=== PATIENT | female | born 1960 ===

== ENCOUNTER 2017-06-16 10:24 | Emergency (ER) | payer OTHER ==
[2017-06-16 10:25] VITALS: BMI 22.8
[2017-06-16] MEDS ORDERED: Sodium Chloride 0.9% 1,000 ML IV ONE (12:09)
[2017-06-16] MEDS ORDERED: Iohexol 240 (50 ml) PO STA (12:09)
[2017-06-16 12:42] LABS: BASO % 0.3 % (0.0-2.0); EOS % 0.2 % (0.0-4.0); HEMOGLOBIN 14.8 g/dL (11.0-16.0); LYMPH # 1.6 K/uL (1.0-4.3); LYMPH % 11.6 % (20.0-40.0); MEAN CELL VOLUME 85.5 fL (81.0-99.0); MEAN CORPUSCULAR HEMOGLOBIN 29.5 pg (27.0-31.0); MEAN CORPUSCULAR HGB CONC 34.5 g/dL (33.0-37.0); MONO # 0.8 K/uL (0.0-0.8); MONO % 5.3 % (0.0-10.0); NEUT # 11.7 K/uL (1.8-7.0); NEUT % 82.6 % (50.0-75.0); RBC 5.01 Mil/uL (3.80-5.20); RED CELL DISTRIBUTION WIDTH 13.9 % (11.5-14.5); WHITE BLOOD COUNT 14.2 K/uL (4.8-10.8)
[2017-06-16] MEDS ORDERED: Iohexol 240 (50 ml) ONE (12:45)
[2017-06-16] MEDS ORDERED: Sodium Chloride 0.9% 1,000 ML ONE (12:46)
[2017-06-16 13:02] LABS: ALB/GLOB RATIO 1.2 (1.0-2.1); ALBUMIN 4.2 g/dL (3.5-5.0); ALT/SGPT 18 U/L (9-52); AST/SGOT 24 U/L (14-36); BLOOD UREA NITROGEN 12 mg/dL (7-17); CALCIUM 9.2 mg/dl (8.6-10.4); GFR AFRICAN-AMERICAN > 60; GFR NON-AFRICAN AMERICAN > 60; LIPASE 57 U/L (23-300)
[2017-06-16 13:03] LABS: HCG,QUALITATIVE URINE NEGATIVE (NEGATIVE)
[2017-06-16 13:13] LABS: SQUAMOUS EPITHIAL 3 /hpf (0-5); URINE BILIRUBIN NEGATIVE (NEGATIVE); URINE BLOOD 1+ (NEGATIVE); URINE CLARITY Hazy (Clear); URINE COLOR Yellow (YELLOW); URINE GLUCOSE (UA) NORMAL (Normal); URINE LEUKOCYTE ESTERASE NEG Leu/uL (Negative); URINE PROTEIN NEGATIVE (NEGATIVE); URINE UROBILINOGEN NORMAL mg/dL (0.2-1.0)
[2017-06-16] MEDS ORDERED: Iodixanol 320 MG/ML 100 ML BOTTLE IV ONE (14:55)
--- NOTE | 2017-06-16 16:30 | CT ---
PROCEDURE: CT Abdomen and Pelvis with contrast HISTORY: abd pain COMPARISON: None. TECHNIQUE: Axial and reformatted coronal and sagittal CT images of the abdomen and pelvis were obtained after IV and oral contrast administration. Contrast dose: 100 mL Visipaque 320. Radiation dose: Total exam DLP = 304.30 mGy-cm. This CT exam was performed using one or more of the following dose reduction techniques: Automated exposure control, adjustment of the mA and/or kV according to patient size, and/or use of iterative reconstruction technique. FINDINGS: LOWER THORAX: Unremarkable. LIVER: Unremarkable. No gross lesion or ductal dilatation. GALLBLADDER AND BILE DUCTS: Unremarkable. PANCREAS: Unremarkable. No gross lesion or ductal dilatation. SPLEEN: Unremarkable. ADRENALS: Unremarkable. No mass. KIDNEYS AND URETERS: The left kidney is very small in size. There is compensatory enlargement of the right kidney. VASCULATURE: Unremarkable. No aortic aneurysm. BOWEL: There is a diffuse descending colon wall thickening surrounding with fat stranding consistent with colitis. No evidence of bowel obstruction APPENDIX: Normal appendix. PERITONEUM: Unremarkable. No free fluid. No free air. LYMPH NODES: Unremarkable. No enlarged lymph nodes. BLADDER: Unremarkable. REPRODUCTIVE: Unremarkable. BONES: No acute fracture. OTHER FINDINGS: None. IMPRESSION: Diffuse descending colon wall thickening surrounding with inflammatory changes consistent with left colitis. The differential consideration includes infection inflammatory or ischemic colitis. Otherwise no evidence of acute pathology in the abdomen and pelvis. Small size left kidney and compensatory enlargement of the right kidney.
[2017-06-16] MEDS ORDERED: cefTRIAXone IV 1 gm in Dextros 50 ML IVPB ONE ×2 (16:53→17:16)
[2017-06-16] MEDS ORDERED: Ciprofloxacin 400mg/200ml D5W 400 MG/200 ML BAG IVPB STA (16:53)
[2017-06-16] MEDS ORDERED: metroNIDAZOLE IV 500 mg/100 ml 500 MG/100 ML BAG IVPB ONE (16:53)
--- NOTE | 2017-06-16 17:14 | C.PDOC ---
History Of Present Illness 56 y/o female presents to the ER complaining of diffuse abdominal pain ( L>R) and blood in stool which has been present since yesterday. Patient states that she also has dizziness. Otherwise, patient denies having CP, SOB, and constipation. Time Seen by Provider: 06/16/17 11:48 Chief Complaint (Nursing): Abdominal Pain History Per: Patient History/Exam Limitations: no limitations Onset/Duration Of Symptoms: Days Current Symptoms Are (Timing): Still Present Severity: Moderate Location Of Pain/Discomfort: Diffuse Associated Symptoms: denies: Fever, Chills, Nausea, Vomiting, Diarrhea Past Medical History Reviewed: Historical Data, Nursing Documentation, Vital Signs Vital Signs: Last Vital Signs Temp 98 F 06/16/17 10:56 Pulse 95 H 06/16/17 10:56 Resp 18 06/16/17 10:56 BP 159/96 H 06/16/17 10:56 Pulse Ox 100 06/16/17 17:32 - Medical History PMH: Anxiety, Back Problems, HTN Denies: HIV, Chronic Kidney Disease Other Surgeries: Hx of surgeries - [facility] Procedures FLUOROSCOPY OF LEFT HEART USING LOW OSMOLAR CONTRAST (04/19/16) FLUOROSCOPY OF MULT COR ART USING L OSM CONTRAST (04/19/16) MEASURE CARDIAC SAMPL & PRESSURE, BILATERAL, PERC (04/19/16) Family History: States: No Known Family Hx - Social History Hx Tobacco Use: Yes Hx Alcohol Use: No Hx Substance Use: No - Immunization History Hx Tetanus Toxoid Vaccination: Yes Hx Influenza Vaccination: Yes Hx Pneumococcal Vaccination: Yes Review Of Systems Except As Marked, All Systems Reviewed And Found Negative. Constitutional: Negative for: Fever, Chills Gastrointestinal: Positive for: Abdominal Pain, Melena. Negative for: Nausea, Vomiting, Diarrhea Physical Exam - Physical Exam Appears: Non-toxic, No Acute Distress Skin: Normal Color, Warm, Dry Head: Atraumatic, Normacephalic Eye(s): bilateral: Normal Inspection Nose: Normal Oral Mucosa: Moist Neck: Supple Chest: Symmetrical Cardiovascular: Rhythm Regular Respiratory: Normal Breath Sounds, No Rales, No Rhonchi, No Wheezing Gastrointestinal/Abdominal: Normal Exam, Soft, No Tenderness Neurological/Psych: Oriented x3, Normal Speech ED Course And Treatment - Laboratory Results Result Diagrams: 06/16/17 12:36 06/16/17 12:36 O2 Sat by Pulse Oximetry: 100 (RA) Pulse Ox Interpretation: Normal - CT Scan/US CT-Abd & Pelv. Other Rad Studies (CT/US): Read By Radiologist, Radiology Report Reviewed CT/US Interpretation: PROCEDURE: CT Abdomen and Pelvis with contrast. HISTORY : abd pain. COMPARISON: None. TECHNIQUE: Axial and reformatted coronal and sagittal CT images of the abdomen and pelvis were obtained after IV and oral contrast administration. Contrast dose: 100 mL Visipaque 320. Radiation dose: Total exam DLP = 304.30 mGy-cm. This CT exam was performed using one or more of the following dose reduction techniques: Automated exposure control, adjustment of the mA and/or kV according to patient size, and/or use of iterative reconstruction technique. FINDINGS: LOWER THORAX: Unremarkable. LIVER: Unremarkable. No gross lesion or ductal dilatation. GALLBLADDER AND BILE DUCTS: Unremarkable. PANCREAS: Unremarkable. No gross lesion or ductal dilatation. SPLEEN: Unremarkable. ADRENALS: Unremarkable. No mass. KIDNEYS AND URETERS: The left kidney is very small in size. There is compensatory enlargement of the right kidney. VASCULATURE: Unremarkable. No aortic aneurysm. BOWEL: There is a diffuse descending colon wall thickening surrounding with fat stranding consistent with colitis. No evidence of bowel obstruction. APPENDIX: Normal appendix. PERITONEUM: Unremarkable. No free fluid. No free air. LYMPH NODES: Unremarkable. No enlarged lymph nodes. BLADDER: Unremarkable. REPRODUCTIVE: Unremarkable. BONES: No acute fracture. OTHER FINDINGS: None. IMPRESSION: Diffuse descending colon wall thickening surrounding with inflammatory changes consistent with left colitis. The differential consideration includes infection inflammatory or ischemic colitis. Otherwise no evidence of acute pathology in the abdomen and pelvis. Small size left kidney and compensatory enlargement of the right kidney. Medical Decision Making Medical Decision Making: Plan: --Labs --UA --EKG --CT-Abd & Pelv. --Pepcid IV --Toradol IV --IV Fluids Disposition Counseled Patient/Family Regarding: Studies Performed, Diagnosis, Need For Followup, Rx Given - Disposition Referrals: Sunday Rboertson MD [Staff Provider] - Disposition: HOME/ ROUTINE Disposition Time: 18:06 Condition: STABLE Prescriptions: Ciprofloxacin [Cipro] 1 tab PO BID #14 tab Metronidazole [Flagyl] 1 tab PO BID #14 tab Forms: General Discharge Instructions, [facility] (Green[place]ic), Work Excuse - POA Present On Arrival: None - Clinical Impression Clinical Impression: Colitis - Scribe Statement The provider has reviewed the documentation as recorded by the Scribe Suzan Wong Provider Attestation: All medical record entries made by the Scribe were at my direction and personally dictated by me. I have reviewed the chart and agree that the record accurately reflects my personal performance of the history, physical exam, medical decision making, and the department course for this patient. I have also personally directed, reviewed, and agree with the discharge instructions and disposition.
[2017-06-16] MEDS ORDERED: Ciprofloxacin 400mg/200ml D5W 400 MG/200 ML BAG IVPB ONE (17:17)
[2017-06-16] MEDS ORDERED: metroNIDAZOLE IV 500 mg/100 ml 500 MG/100 ML BAG ONE (17:20)
[2017-06-16 19:20] VITALS: BP 149/82; PULSE 82; RESP 16; TEMP 98.7; O2SAT 99
--- NOTE | 2017-06-18 12:25 | CARD ---
APPROVED REPORT EKG Measurement Heart [id number] <Conclusion> Normal sinus rhythm Possible Left atrial enlargement Borderline ECG
== END 2017-06-16 19:18 | disposition home or self-care (01) ==
LOC: C.ER 10:24
DX: K52.9 Noninfective gastroenteritis and colitis, unspecified (principal); I10 Essential (primary) hypertension; F17.210 Nicotine dependence, cigarettes, uncomplicated
CPT/HCPCS: 74177; 80053; 81001; 83690; 84703; 85025; 93005; 96361; 96365; 96367; 96375; 99284; J0696; J0744; J1885; J7040; Q9966; Q9967

== ENCOUNTER 2017-06-17 19:00 | Inpatient (IN) | payer OTHER ==
[2017-06-17 19:01] VITALS: BMI 22.8
[2017-06-17] MEDS ORDERED: Sodium Chloride 0.9% 1,000 ML IV ONE (21:03)
[2017-06-17] MEDS ORDERED: Sodium Chloride 0.9% 1,000 ML ONE (21:13)
[2017-06-17 21:15] LABS: BASO % 0.1 % (0.0-2.0); EOS % 0.3 % (0.0-4.0); HEMOGLOBIN 15.4 g/dL (11.0-16.0); LYMPH # 2.4 K/uL (1.0-4.3); MEAN CELL VOLUME 85.5 fL (81.0-99.0); MEAN CORPUSCULAR HGB CONC 33.9 g/dL (33.0-37.0); MEAN PLATELET VOLUME 9.7 fL (7.2-11.7); MONO # 1.1 K/uL (0.0-0.8); MONO % 7.1 % (0.0-10.0); NEUT # 12.2 K/uL (1.8-7.0); NEUT % 77.5 % (50.0-75.0); RBC 5.29 Mil/uL (3.80-5.20); RED CELL DISTRIBUTION WIDTH 13.7 % (11.5-14.5); WHITE BLOOD COUNT 15.7 K/uL (4.8-10.8)
[2017-06-17 21:25] LABS: SQUAMOUS EPITHIAL 3 /hpf (0-5); URINE BILIRUBIN NEGATIVE (NEGATIVE); URINE BLOOD NEGATIVE (NEGATIVE); URINE CLARITY Clear (Clear); URINE COLOR Yellow (YELLOW); URINE GLUCOSE (UA) NORMAL (Normal); URINE LEUKOCYTE ESTERASE 1+ Leu/uL (Negative); URINE PROTEIN 1+ mg/dL (NEGATIVE); URINE URIC ACID CRYSTALS OCC /hpf (<OCC); URINE UROBILINOGEN NORMAL mg/dL (0.2-1.0)
[2017-06-17 21:34] LABS: ALB/GLOB RATIO 1.2 (1.0-2.1); ALBUMIN 4.4 g/dL (3.5-5.0); ALT/SGPT 23 U/L (9-52); AST/SGOT 42 U/L (14-36); BLOOD UREA NITROGEN 14 mg/dL (7-17); CALCIUM 9.4 mg/dl (8.6-10.4); GFR AFRICAN-AMERICAN > 60; GFR NON-AFRICAN AMERICAN > 60
--- NOTE | 2017-06-17 21:52 | C.PDOC ---
History Of Present Illness 56yo female, presents to ED for evaluation of persistent bloody diarrhea. Patient was seen and evaluated by Dr. Cameron in this ER yesterday for bloody diarrhea and was diagnosed with colitis via a CT scan. Patient was discharged home on Cipro and Flagyl and states she took the medications but when she woke up this morning, she had continued abdominal pain, bloody diarrhea with PO intake and intense abdominal pain. Patient contacted Dr. Robertson (her PMD) who advised her to return to the ER. Currently, she reports a mild abdominal pain and states she is feeling better. Of note, patient did not take her blood pressure medication today. Time Seen by Provider: 06/17/17 20:51 Chief Complaint (Nursing): Abdominal Pain History Per: Patient History/Exam Limitations: no limitations Onset/Duration Of Symptoms: Days Current Symptoms Are (Timing): Still Present Location Of Pain/Discomfort: Diffuse Associated Symptoms: Diarrhea Past Medical History Reviewed: Historical Data, Nursing Documentation, Vital Signs Vital Signs: Last Vital Signs Temp 98.5 F 06/17/17 19:45 Pulse 110 H 06/17/17 19:45 Resp 16 06/17/17 19:45 BP 181/111 H 06/17/17 19:45 Pulse Ox 100 06/17/17 22:05 - Medical History PMH: Anxiety, Back Problems, HTN Denies: HIV, Chronic Kidney Disease Surgical History: No Surg Hx - [facility] Procedures FLUOROSCOPY OF LEFT HEART USING LOW OSMOLAR CONTRAST (04/19/16) FLUOROSCOPY OF MULT COR ART USING L OSM CONTRAST (04/19/16) MEASURE CARDIAC SAMPL & PRESSURE, BILATERAL, PERC (04/19/16) Family History: States: No Known Family Hx, Unknown Family Hx - Social History Hx Tobacco Use: Yes Hx Alcohol Use: No Hx Substance Use: No - Immunization History Hx Tetanus Toxoid Vaccination: Yes Hx Influenza Vaccination: Yes Hx Pneumococcal Vaccination: Yes Review Of Systems Except As Marked, All Systems Reviewed And Found Negative. Constitutional: Negative for: Fever, Chills Gastrointestinal: Positive for: Abdominal Pain, Diarrhea, Hematochezia Physical Exam - Physical Exam Appears: Non-toxic Skin: Warm Head: Atraumatic, Normacephalic Eye(s): bilateral: Normal Inspection, PERRL, EOMI Oral Mucosa: Dry Neck: Normal ROM, Supple Chest: Symmetrical Cardiovascular: Rhythm Regular Respiratory: Normal Breath Sounds, No Wheezing Gastrointestinal/Abdominal: Soft, Tenderness (mild left lower quadrant), No Mass , No Guarding, No Rebound Back: Normal Inspection Extremity: Normal ROM, No Deformity, No Swelling Neurological/Psych: Oriented x3 ED Course And Treatment - Laboratory Results Result Diagrams: 06/17/17 21:09 06/17/17 21:09 Lab Interpretation: Abnormal (WBC 15.7 increased from yesterday) O2 Sat by Pulse Oximetry: 100 (RA) Pulse Ox Interpretation: Normal - Physician Consult Information Physician Contacted: Sunday Robertson Outcome Of Conversation: Patient to be admitted for IV antibiotics and GI consult Medical Decision Making Medical Decision Making: Plan: -- Labs -- IV Fluids Time: [address] Robertson, and patient to be admitted due to colitis. GI consult placed with Dr. Isaacs Disposition - Disposition Disposition: HOSPITALIZED Disposition Time: 22:23 Condition: STABLE - POA Present On Arrival: None - Clinical Impression Clinical Impression: Colitis - Scribe Statement The provider has reviewed the documentation as recorded by the Scribe (Dianna Polanco) Provider Attestation: All medical record entries made by the Scribe were at my direction and personally dictated by me. I have reviewed the chart and agree that the record accurately reflects my personal performance of the history, physical exam, medical decision making, and the department course for this patient. I have also personally directed, reviewed, and agree with the discharge instructions and disposition.
[2017-06-17] MEDS ORDERED: Morphine 4 MG/ML VIAL ONE (23:13)
[2017-06-18] MEDS: Potassium Chl 40 mEq in D5-1/2 1,000 ML IV SCH ×3 (01:00→20:47)
[2017-06-18] MEDS: Clindamycin 300 MG in Sodium Chloride 0.9% 50 ML IVPB SCH ×4 (01:00→17:41)
[2017-06-18] MEDS: Ciprofloxacin 200mg/100ml D5W 100 ML IVPB SCH ×2 (01:30→12:53)
--- NOTE | 2017-06-18 09:52 | CP.PCM.CON ---
History of Present Illness - History of Present Illness History of Present Illness: 56 yo female h/o HTN, reports few days of diarrhea and abdom pain. Diarrhea- few times per day with BRBPR. Went to ER 2 days ago and discharged. Went back yesterday and admitted. Today she reports starting to have less pain, diarrrhea , and RB. Denies travel, antibiotics. PMH- Reports neg card cath 1 yr ago. Review of Systems - Constitutional Constitutional: Fatigue. absent: Chills, Weight Gain, Weight Loss - Cardiovascular Cardiovascular: absent: Chest Pain, Dyspnea - Respiratory Respiratory: absent: Hemoptysis, Wheezing - Gastrointestinal Gastrointestinal: Abdominal Pain, Diarrhea, Hematochezia, Loose Stools. absent : Dyspepsia, Dysphagia, Hematemesis, Melena, Odynophagia, Vomiting - Genitourinary Genitourinary: absent: Hematuria - Musculoskeletal Musculoskeletal: absent: Muscle Cramps, Tingling - Integumentary Integumentary: absent: Erythema, Jaundice - Neurological Neurological: absent: Convulsions Past Patient History - Infectious Disease Hx of Infectious Diseases: None - Past Medical History & Family History Past Medical History?: Yes - Past Social History Smoking Status: Light Smoker < 10 Cigarettes Daily - CARDIAC Hx Cardiac Disorders: No Hx Hypertension: Yes - PULMONARY Hx Respiratory Disorders: No - NEUROLOGICAL Hx Neurological Disorder: No - HEENT Hx HEENT Problems: No - RENAL Hx Chronic Kidney Disease: No - ENDOCRINE/METABOLIC Hx Endocrine Disorders: No - HEMATOLOGICAL/ONCOLOGICAL Hx Blood Disorders: No Hx Human Immunodeficiency Virus (HIV): No - INTEGUMENTARY Hx Dermatological Problems: No - MUSCULOSKELETAL/RHEUMATOLOGICAL Hx Musculoskeletal Disorders: Yes Hx Back Pain: Yes Hx Falls: No - GASTROINTESTINAL Hx Gastrointestinal Disorders: No - GENITOURINARY/GYNECOLOGICAL Hx Genitourinary Disorders: No - PSYCHIATRIC Hx Anxiety: Yes Hx Substance Use: No - SURGICAL HISTORY Hx Surgeries: Yes Other/Comment: 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 - ANESTHESIA Hx Anesthesia: Yes Hx Anesthesia Reactions: No Hx Malignant Hyperthermia: No Meds Allergies/Adverse Reactions: Allergies Allergy/AdvReac Type Severity Reaction Status Date / Time No Known Allergies Allergy Verified 06/17/17 19:52 - Medications Medications: Current Medications Amlodipine Besylate (Norvasc) 10 mg PO DAILY KADI Last Admin: 06/18/17 09:06 Dose: 10 mg Potassium Chloride/Dextrose/Sod Cl (Potassium Chl 40 Meq In D5-1/2ns) 1,000 mls @ 100 mls/hr IV .Q10H [facility] Last Admin: 06/18/17 01:00 Dose: 100 mls/hr Clindamycin Phosphate 300 mg/ (Sodium Chloride) 52 mls @ 100 mls/hr IVPB Q6H KADI PRN Reason: Protocol Last Admin: 06/18/17 06:54 Dose: 100 mls/hr Ciprofloxacin (Cipro 200mg/100ml D5w) 100 mls @ 67 mls/hr IVPB Q12H KADI PRN Reason: Protocol Last Admin: 06/18/17 01:30 Dose: 67 mls/hr Pantoprazole Sodium (Protonix Inj) 40 mg IVP Q12H [facility] Last Admin: 06/18/17 01:30 Dose: 40 mg Physical Exam - Constitutional Appears: Well - Respiratory Exam Respiratory Exam: Clear to Auscultation Bilateral - Cardiovascular Exam Cardiovascular Exam: RRR - GI/Abdominal Exam GI & Abdominal Exam: Normal Bowel Sounds, Soft, Tenderness. absent: Distended, Firm, Guarding, Mass, Rebound, Rigid Additional comments: mild mid abdom tenderness. - Neurological Exam Neurological exam: Alert, Oriented x3 Results - Vital Signs Recent Vital Signs: Last Vital Signs Temp 98.4 F 06/18/17 07:58 Pulse 83 06/18/17 07:58 Resp 20 06/18/17 07:58 BP 132/81 06/18/17 07:58 Pulse Ox 100 06/18/17 07:58 - Labs Result Diagrams: 06/17/17 21:09 06/17/17 21:09 Labs: Laboratory Results - last 24 hr 06/17/17 06/17/17 06/17/17 21:09 21:09 21:09 WBC 15.7 H RBC 5.29 H Hgb 15.4 Hct 45.3 MCV 85.5 MCH 29.0 MCHC 33.9 RDW 13.7 Plt Count 290 MPV 9.7 Neut % (Auto) 77.5 H Lymph % (Auto) 15.0 L [place] % (Auto) 7.1 Eos % (Auto) 0.3 Baso % (Auto) 0.1 Neut # (Auto) 12.2 H Lymph # (Auto) 2.4 [place] # (Auto) 1.1 H Eos # (Auto) 0.0 Baso # (Auto) 0.0 Sodium 138 Potassium 3.2 L Chloride 97 L Carbon Dioxide 25 Anion Gap 19 BUN 14 Creatinine 0.8 Est GFR ( Amer) > 60 Est GFR (Non-Af Amer) > 60 Random Glucose 108 H Lactic Acid Calcium 9.4 Total Bilirubin 0.6 AST 42 H D ALT 23 Alkaline Phosphatase 114 Total Protein 8.2 Albumin 4.4 Globulin 3.8 Albumin/Globulin Ratio 1.2 Urine Color Yellow Urine Clarity Clear Urine pH 5.0 Ur Specific [place] 1.021 Urine Protein 1+ H Urine Glucose (UA) Normal Urine Ketones 1+ H Urine Blood Negative Urine Nitrate Negative Urine Bilirubin Negative Urine Urobilinogen Normal Ur Leukocyte Esterase 1+ H Urine WBC (Auto) 3 Urine RBC (Auto) 1 Ur Squamous Epith Cells 3 Uric Acid Crystals Occ H 06/18/17 01:57 WBC RBC Hgb Hct MCV MCH MCHC RDW Plt Count MPV Neut % (Auto) Lymph % (Auto) [place] % (Auto) Eos % (Auto) Baso % (Auto) Neut # (Auto) Lymph # (Auto) [place] # (Auto) Eos # (Auto) Baso # (Auto) Sodium Potassium Chloride Carbon Dioxide Anion Gap BUN Creatinine Est GFR ( Amer) Est GFR (Non-Af Amer) Random Glucose Lactic Acid 0.6 L Calcium Total Bilirubin AST ALT Alkaline Phosphatase Total Protein Albumin Globulin Albumin/Globulin Ratio Urine Color Urine Clarity Urine pH Ur Specific [place] Urine Protein Urine Glucose (UA) Urine Ketones Urine Blood Urine Nitrate Urine Bilirubin Urine Urobilinogen Ur Leukocyte Esterase Urine WBC (Auto) Urine RBC (Auto) Ur Squamous Epith Cells Uric Acid Crystals Assessment & Plan (1) Diarrhea Assessment and Plan: Likely gastroenteritis.. Consider colitis, ischemic colitis. Pt reports imroving today. Check stool tests, CBC, WBC. Colonosocpy in future. Status: Acute (2) Abdominal pain Status: Acute (3) Rectal bleed Status: Acute (4) Colitis Assessment and Plan: On CT. As above. Status: Acute
[2017-06-18 10:09] LABS: BASO % 0.3 % (0.0-2.0); EOS # 0.1 K/uL (0.0-0.7); EOS % 0.9 % (0.0-4.0); LYMPH # 1.2 K/uL (1.0-4.3); LYMPH % 9.9 % (20.0-40.0); MEAN CELL VOLUME 84.9 fL (81.0-99.0); MEAN CORPUSCULAR HEMOGLOBIN 29.8 pg (27.0-31.0); MEAN CORPUSCULAR HGB CONC 35.1 g/dL (33.0-37.0); MEAN PLATELET VOLUME 9.4 fL (7.2-11.7); MONO % 8.4 % (0.0-10.0); NEUT # 9.8 K/uL (1.8-7.0); NEUT % 80.5 % (50.0-75.0); PLATELET COUNT 207 K/uL (130-400); RBC 4.48 Mil/uL (3.80-5.20); RED CELL DISTRIBUTION WIDTH 13.8 % (11.5-14.5); WHITE BLOOD COUNT 12.1 K/uL (4.8-10.8)
[2017-06-18 10:10] LABS: HEMOGLOBIN 13.3 g/dL (11.0-16.0)
[2017-06-18 10:20] LABS: BLOOD UREA NITROGEN 9 mg/dL (7-17); CALCIUM 8.3 mg/dl (8.6-10.4); GFR AFRICAN-AMERICAN > 60; GFR NON-AFRICAN AMERICAN > 60
[2017-06-18 10:41] LABS: MONOCYTE 8 % (0-10); TOTAL CELLS COUNTED 100
[2017-06-18 10:42] LABS: LYMPHOCYTE 11 % (20-40); NEUTROPHIL 81 % (50-75); PLATELET ESTIMATE NORMAL (NORMAL)
[2017-06-18] MEDS ORDERED: Potassium Chloride 20 mEq ER Tab PO ONE (12:30)
--- NOTE | 2017-06-18 18:28 | CP.PCM.HP ---
History of Present Illness - History of Present Illness History of Present Illness: 56 y/o lady with hx of htn presented in ER with persistent nausea, vomiting, profuse diarrhea and abdominal pain x 4 days. The was was seen in ER and eventually dc on anti bx medication. She poorly responded to the oral antibx and she continue to c/o diarrhea, watery, with blood with severe cramping , tenesmus nausea and vomiting. The stool appears watery with blood and foul odor. Patient does not recall any unusual food and no contact with people with similar c/o. The ctscan reveled a diffuse severe colitis. Present on Admission - Present on Admission Any Indicators Present on Admission: No Past Patient History - Infectious Disease Hx of Infectious Diseases: None - Past Medical History & Family History Past Medical History?: Yes - Past Social History Smoking Status: Light Smoker < 10 Cigarettes Daily - CARDIAC Hx Cardiac Disorders: No Hx Hypertension: Yes - PULMONARY Hx Respiratory Disorders: No - NEUROLOGICAL Hx Neurological Disorder: No - HEENT Hx HEENT Problems: No - RENAL Hx Chronic Kidney Disease: No - ENDOCRINE/METABOLIC Hx Endocrine Disorders: No - HEMATOLOGICAL/ONCOLOGICAL Hx Blood Disorders: No Hx Human Immunodeficiency Virus (HIV): No - INTEGUMENTARY Hx Dermatological Problems: No - MUSCULOSKELETAL/RHEUMATOLOGICAL Hx Musculoskeletal Disorders: Yes Hx Back Pain: Yes Hx Falls: No - GASTROINTESTINAL Hx Gastrointestinal Disorders: No - GENITOURINARY/GYNECOLOGICAL Hx Genitourinary Disorders: No - PSYCHIATRIC Hx Anxiety: Yes Hx Substance Use: No - SURGICAL HISTORY Hx Surgeries: Yes Other/Comment: 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 - ANESTHESIA Hx Anesthesia: Yes Hx Anesthesia Reactions: No Hx Malignant Hyperthermia: No Meds Allergies/Adverse Reactions: Allergies Allergy/AdvReac Type Severity Reaction Status Date / Time No Known Allergies Allergy Verified 06/17/17 19:52 Physical Exam - Constitutional Appears: No Acute Distress Additional comments: looks dehydrated - Head Exam Head Exam: ATRAUMATIC, NORMAL INSPECTION, NORMOCEPHALIC - Eye Exam Eye Exam: Normal appearance - ENT Exam ENT Exam: Mucous Membranes Dry - Neck Exam Neck exam: Positive for: Full Rom - Respiratory Exam Respiratory Exam: Clear to Auscultation Bilateral - Cardiovascular Exam Cardiovascular Exam: REGULAR RHYTHM, +S1, +S2 - GI/Abdominal Exam GI & Abdominal Exam: Hyperactive Bowel Sounds - Extremities Exam Extremities exam: Positive for: full ROM - Neurological Exam Neurological exam: Alert, CN II-XII Intact, Reflexes Normal - Psychiatric Exam Psychiatric exam: Anxious - Skin Skin Exam: Pallor Results - Vital Signs Recent Vital Signs: Last Vital Signs Temp 98 F 06/18/17 15:00 Pulse 88 06/18/17 15:00 Resp 20 06/18/17 15:00 BP 143/87 06/18/17 15:00 Pulse Ox 98 06/18/17 15:00 - Labs Result Diagrams: 06/18/17 09:55 06/18/17 09:55 Labs: Laboratory Results - last 24 hr 06/17/17 06/17/17 06/17/17 21:09 21:09 21:09 WBC 15.7 H RBC 5.29 H Hgb 15.4 Hct 45.3 MCV 85.5 MCH 29.0 MCHC 33.9 RDW 13.7 Plt Count 290 MPV 9.7 Neut % (Auto) 77.5 H Lymph % (Auto) 15.0 L [place] % (Auto) 7.1 Eos % (Auto) 0.3 Baso % (Auto) 0.1 Neut # (Auto) 12.2 H Lymph # (Auto) 2.4 [place] # (Auto) 1.1 H Eos # (Auto) 0.0 Baso # (Auto) 0.0 Neutrophils % (Manual) Lymphocytes % (Manual) Monocytes % (Manual) Platelet Estimate RBC Morphology Sodium 138 Potassium 3.2 L Chloride 97 L Carbon Dioxide 25 Anion Gap 19 BUN 14 Creatinine 0.8 Est GFR ( Amer) > 60 Est GFR (Non-Af Amer) > 60 Random Glucose 108 H Lactic Acid Calcium 9.4 Total Bilirubin 0.6 AST 42 H D ALT 23 Alkaline Phosphatase 114 Total Protein 8.2 Albumin 4.4 Globulin 3.8 Albumin/Globulin Ratio 1.2 Urine Color Yellow Urine Clarity Clear Urine pH 5.0 Ur Specific [place] 1.021 Urine Protein 1+ H Urine Glucose (UA) Normal Urine Ketones 1+ H Urine Blood Negative Urine Nitrate Negative Urine Bilirubin Negative Urine Urobilinogen Normal Ur Leukocyte Esterase 1+ H Urine WBC (Auto) 3 Urine RBC (Auto) 1 Ur Squamous Epith Cells 3 Uric Acid Crystals Occ H Stool Leukocytes, Qual C. difficile Ag & Toxin 06/18/17 06/18/17 06/18/17 00:15 01:57 08:46 WBC RBC Hgb Hct MCV MCH MCHC RDW Plt Count MPV Neut % (Auto) Lymph % (Auto) [place] % (Auto) Eos % (Auto) Baso % (Auto) Neut # (Auto) Lymph # (Auto) [place] # (Auto) Eos # (Auto) Baso # (Auto) Neutrophils % (Manual) Lymphocytes % (Manual) Monocytes % (Manual) Platelet Estimate RBC Morphology Sodium Potassium Chloride Carbon Dioxide Anion Gap BUN Creatinine Est GFR ( Amer) Est GFR (Non-Af Amer) Random Glucose Lactic Acid 0.6 L Calcium Total Bilirubin AST ALT Alkaline Phosphatase Total Protein Albumin Globulin Albumin/Globulin Ratio Urine Color Urine Clarity Urine pH Ur Specific [place] Urine Protein Urine Glucose (UA) Urine Ketones Urine Blood Urine Nitrate Urine Bilirubin Urine Urobilinogen Ur Leukocyte Esterase Urine WBC (Auto) Urine RBC (Auto) Ur Squamous Epith Cells Uric Acid Crystals Stool Leukocytes, Qual Negative C. difficile Ag & Toxin Negative 06/18/17 06/18/17 09:55 09:55 WBC 12.1 H RBC 4.48 Hgb 13.3 D Hct 38.1 MCV 84.9 MCH 29.8 MCHC 35.1 RDW 13.8 Plt Count 207 MPV 9.4 Neut % (Auto) 80.5 H Lymph % (Auto) 9.9 L [place] % (Auto) 8.4 Eos % (Auto) 0.9 Baso % (Auto) 0.3 Neut # (Auto) 9.8 H Lymph # (Auto) 1.2 [place] # (Auto) 1.0 H Eos # (Auto) 0.1 Baso # (Auto) 0.0 Neutrophils % (Manual) 81 H Lymphocytes % (Manual) 11 L Monocytes % (Manual) 8 Platelet Estimate Normal RBC Morphology Normal Sodium 138 Potassium 3.3 L Chloride 100 Carbon Dioxide 26 Anion Gap 15 BUN 9 Creatinine 0.7 Est GFR ( Amer) > 60 Est GFR (Non-Af Amer) > 60 Random Glucose 103 Lactic Acid Calcium 8.3 L Total Bilirubin AST ALT Alkaline Phosphatase Total Protein Albumin Globulin Albumin/Globulin Ratio Urine Color Urine Clarity Urine pH Ur Specific [place] Urine Protein Urine Glucose (UA) Urine Ketones Urine Blood Urine Nitrate Urine Bilirubin Urine Urobilinogen Ur Leukocyte Esterase Urine WBC (Auto) Urine RBC (Auto) Ur Squamous Epith Cells Uric Acid Crystals Stool Leukocytes, Qual C. difficile Ag & Toxin Assessment & Plan (1) Dehydration Status: Acute (2) Abdominal pain Status: Acute (3) Colitis Status: Acute (4) Diarrhea Status: Acute (5) Rectal bleed Status: Acute (6) Hypopotassemia Status: Acute - Assessment and Plan (Free Text) Plan: As per orders.
[2017-06-18 19:16] LABS: ALB/GLOB RATIO 1.2 (1.0-2.1); ALBUMIN 3.5 g/dL (3.5-5.0); ALT/SGPT 15 U/L (9-52); AMYLASE 56 U/L (30-110); AST/SGOT 20 U/L (14-36); BILIRUBIN,DIRECT 0.4 mg/dL (0.0-0.4); BLOOD UREA NITROGEN 7 mg/dL (7-17); CALCIUM 8.6 mg/dl (8.6-10.4); GFR AFRICAN-AMERICAN > 60; GFR NON-AFRICAN AMERICAN > 60; LIPASE 53 U/L (23-300)
[2017-06-18 19:42] LABS: HEPATITIS B SURFACE AG Negative (NEGATIVE)
[2017-06-18 19:48] LABS: HEPATITIS A IGM NEGATIVE (NEGATIVE); HEPATITIS B CORE AB NEGATIVE (NEGATIVE)
[2017-06-18 19:59] LABS: HEPATITIS C ANTIBODY NEGATIVE (NEGATIVE)
[2017-06-19] MEDS: Clindamycin 300 MG in Sodium Chloride 0.9% 50 ML IVPB SCH (00:35)
[2017-06-19] MEDS: Ciprofloxacin 200mg/100ml D5W 100 ML IVPB SCH ×2 (00:36→11:40)
[2017-06-19] MEDS: Potassium Chl 40 mEq in D5-1/2 1,000 ML IV SCH ×2 (05:48→16:27)
[2017-06-19 07:33] LABS: BASO % 0.1 % (0.0-2.0); EOS % 0.3 % (0.0-4.0); HEMOGLOBIN 12.8 g/dL (11.0-16.0); LYMPH # 1.1 K/uL (1.0-4.3); LYMPH % 8.5 % (20.0-40.0); MEAN CORPUSCULAR HEMOGLOBIN 29.3 pg (27.0-31.0); MEAN CORPUSCULAR HGB CONC 34.5 g/dL (33.0-37.0); MEAN PLATELET VOLUME 9.7 fL (7.2-11.7); MONO # 1.1 K/uL (0.0-0.8); MONO % 7.8 % (0.0-10.0); NEUT # 11.2 K/uL (1.8-7.0); NEUT % 83.3 % (50.0-75.0); NRBC % 0.1 % (0.0-2.0); PLATELET COUNT 201 K/uL (130-400); RBC 4.36 Mil/uL (3.80-5.20); RED CELL DISTRIBUTION WIDTH 13.6 % (11.5-14.5); WHITE BLOOD COUNT 13.5 K/uL (4.8-10.8)
[2017-06-19 07:47] LABS: BLOOD UREA NITROGEN 5 mg/dL (7-17); CALCIUM 8.5 mg/dl (8.6-10.4); GFR AFRICAN-AMERICAN > 60; GFR NON-AFRICAN AMERICAN > 60
[2017-06-19] MEDS ORDERED: Clindamycin 300 MG in Sodium Chloride 0.9% 50 ML IVPB SCH (08:00)
--- NOTE | 2017-06-19 08:10 | CP.PCM.PN ---
Subjective - Date & Time of Evaluation Date of Evaluation: 06/19/17 Time of Evaluation: 08:08 - Subjective Subjective: f/u r bleed Pt reports NO more bleeding. Reports abdom cramps- moderate. Diarrhea- still continues. Sl fever. Denies melena, LYON, cough . CP, SOB, SZ, hematuria, hemoptysis Objective - Vital Signs/Intake and Output Vital Signs (last 24 hours): Temp Pulse Resp BP Pulse Ox 99 F 90 20 126/81 96 06/19/17 05:32 06/19/17 04:30 06/19/17 04:30 06/19/17 00:00 06/19/17 00:00 Intake and Output: 06/19/17 06/19/17 06:59 18:59 Intake Total 1920 Balance 1920 - Medications Medications: Current Medications Acetaminophen (Tylenol 325mg Tab) 650 mg PO Q6 PRN PRN Reason: Pain, moderate (4-7) Last Admin: 06/19/17 04:32 Dose: 650 mg Amlodipine Besylate (Norvasc) 10 mg PO DAILY [facility] Last Admin: 06/18/17 09:06 Dose: 10 mg Potassium Chloride/Dextrose/Sod Cl (Potassium Chl 40 Meq In D5-1/2ns) 1,000 mls @ 100 mls/hr IV .Q10H [facility] Last Admin: 06/19/17 05:48 Dose: 100 mls/hr Ciprofloxacin (Cipro 200mg/100ml D5w) 100 mls @ 67 mls/hr IVPB Q12H [facility] PRN Reason: Protocol Last Admin: 06/19/17 00:36 Dose: 67 mls/hr Clindamycin Phosphate 300 mg/ (Sodium Chloride) 52 mls @ 100 mls/hr IVPB Q6H [facility] PRN Reason: Protocol Pantoprazole Sodium (Protonix Inj) 40 mg IVP Q12H [facility] Last Admin: 06/19/17 00:38 Dose: 40 mg - Labs Labs: 06/19/17 07:18 06/19/17 07:18 - Constitutional Appears: Non-toxic - Respiratory Exam Respiratory Exam: Clear to Ausculation Bilateral - Cardiovascular Exam Cardiovascular Exam: RRR - GI/Abdominal Exam GI & Abdominal Exam: Soft, Tenderness, Normal Bowel Sounds. absent: Guarding, Mass, Rebound Additional comments: mild mid tenderness. - Extremities Exam Extremities Exam: absent: Pedal Edema - Neurological Exam Neurological Exam: Alert, Oriented x3 Assessment and Plan (1) Diarrhea Status: Acute (2) Abdominal pain Assessment & Plan: colitis, or gastroenteritis Status: Acute (3) Rectal bleed Assessment & Plan: Stopped. From colitis Status: Acute (4) Colitis Assessment & Plan: Likely infectious. WBC 15 to 12 to 13. COnsdier ichemic, i doubt IBD On cipro. ALso on clindamycin. I would recommend changing clindamycin to flagyl. Check stool tests. c difficile is negative. Status: Acute (5) Leukocytosis Status: Acute
[2017-06-19 08:17] LABS: BANDS 1 % (0-2); EOSINOPHIL 1 % (0-4); NEUTROPHIL 81 % (50-75); TOTAL CELLS COUNTED 100
[2017-06-19 08:18] LABS: LYMPHOCYTE 10 % (20-40); MONOCYTE 7 % (0-10); PLATELET ESTIMATE NORMAL (NORMAL)
[2017-06-19] MEDS ORDERED: Clindamycin 300 MG in Sodium Chloride 0.9% 100 ML IVPB SCH (09:00)
[2017-06-19] MEDS ORDERED: metroNIDAZOLE IV 250mg/50 ml 250 MG/50 ML BAG IVPB SCH (11:00)
--- NOTE | 2017-06-19 17:50 | CP.PCM.PN ---
Subjective - Date & Time of Evaluation Date of Evaluation: 06/19/17 Time of Evaluation: 14:15 - Subjective Subjective: Patient still c/o same watery diarrhea. Objective - Vital Signs/Intake and Output Vital Signs (last 24 hours): Temp Pulse Resp BP Pulse Ox 98.3 F 87 20 133/81 97 06/19/17 15:00 06/19/17 15:00 06/19/17 15:00 06/19/17 15:00 06/19/17 15:00 Intake and Output: 06/19/17 06/19/17 11:59 23:59 Intake Total 980 1350 Balance 980 1350 - Medications Medications: Current Medications Acetaminophen (Tylenol 325mg Tab) 650 mg PO Q6 PRN PRN Reason: Pain, moderate (4-7) Last Admin: 06/19/17 17:28 Dose: 650 mg Amlodipine Besylate (Norvasc) 10 mg PO DAILY [facility] Last Admin: 06/19/17 10:00 Dose: 10 mg Potassium Chloride/Dextrose/Sod Cl (Potassium Chl 40 Meq In D5-1/2ns) 1,000 mls @ 100 mls/hr IV .Q10H [facility] Last Admin: 06/19/17 16:27 Dose: Not Given Ciprofloxacin (Cipro 200mg/100ml D5w) 100 mls @ 67 mls/hr IVPB Q12H [facility] PRN Reason: Protocol Last Admin: 06/19/17 11:40 Dose: 67 mls/hr Metronidazole (Flagyl) 250 mg in 50 mls @ 50 mls/hr IVPB Q8H [facility] PRN Reason: Protocol Last Admin: 06/19/17 10:34 Dose: 50 mls/hr Pantoprazole Sodium (Protonix Inj) 40 mg IVP Q12H [facility] Last Admin: 06/19/17 12:02 Dose: 40 mg - Labs Labs: 06/19/17 07:18 06/19/17 07:18 - Constitutional Appears: Chronically Ill - Head Exam Head Exam: ATRAUMATIC, NORMAL INSPECTION, NORMOCEPHALIC - Eye Exam Eye Exam: Normal appearance - ENT Exam ENT Exam: Mucous Membranes Dry - Neck Exam Neck Exam: Full ROM - Respiratory Exam Respiratory Exam: Clear to Ausculation Bilateral - Cardiovascular Exam Cardiovascular Exam: REGULAR RHYTHM, +S1, +S2 - GI/Abdominal Exam GI & Abdominal Exam: Hypoactive Bowel Sounds - Extremities Exam Extremities Exam: Normal Inspection - Neurological Exam Neurological Exam: Alert, Awake, CN II-XII Intact, Oriented x3 - Psychiatric Exam Psychiatric exam: Normal Affect - Skin Skin Exam: Pallor Assessment and Plan (1) Dehydration Status: Acute (2) Abdominal pain Status: Acute (3) Colitis Status: Acute (4) Diarrhea Status: Acute (5) Rectal bleed Status: Acute (6) Hypopotassemia Status: Acute - Assessment and Plan (Free Text) Plan: Continue present rx.
--- NOTE | 2017-06-19 18:50 | CP.PCM.CON ---
History of Present Illness - History of Present Illness History of Present Illness: INFECTIOUS DISEASE CONSULTATION BERNICE MI MD, FACP 3T 350-B 06/19/2017 CHART REVIEWED PT EXAMINED CASE DISCUSSED 56 y/o lady with hx of htn presented in ER with persistent nausea, vomiting, profuse diarrhea and abdominal pain x 4 days. SHE was was seen in ER and eventually dc on anti bx medication. She poorly responded to the oral antibx and she continued to have c/o diarrhea, watery, with blood with severe cramping , tenesmus nausea and vomiting. The stool appears watery with blood and foul odor. Patient does not recall any unusual food and no contact with people with similar c/o. The ctscan reveled a diffuse severe colitis. AN INFECTIOUS DISEASE CONSULTATION WAS REQUESTED TODAY FOR ELEVATION OF TEMPERATURES AND NON RESPONSIVE TO PRESENT MANAGEMENT, ON MY EXAM HER TEMP IS NOW 100.9 RECTALLY! HPMHX: HTN DENIES ALLERGIES SMOKES 1/2 PACK PER DAY TIMES MANY YEARS ETOH DENIES FAMILY HX APPARENTLY NOT APPLICABLE NO RECENT TRAVEL BUT EXPOSED TO [facility] HOSPITAL MEDS REVIEWED AND ADDRESSED EMPIRIC MEDS ADJUSTED WELL PO VANCOMYCIN DESPITE NEGATIVE LAB TESTS AT PRESENT. Review of Systems - Review of Systems Systems not reviewed;Unavailable: Unstable Vital Signs - Constitutional Constitutional: Chills, Fever, Headache, Night Sweats - EENT Eyes: absent: Blurred Vision, Change in Vision Ears: absent: Decreased Hearing Nose/Mouth/Throat: Dry Mouth. absent: Epistaxis, Nasal Discharge, Post Nasal Drip, Mouth Lesions, Mouth Pain - Cardiovascular Cardiovascular: Diaphoresis, Rapid Heart Rate - Gastrointestinal Gastrointestinal: Bloating, Change in Stool Character, Cramping, Diarrhea, Excessive Flatus, Loose Stools, Nausea, Temesmus - Musculoskeletal Musculoskeletal: Muscle Weakness, Myalgias - Integumentary Integumentary: absent: Alopecia, Lesions, Swelling - Neurological Neurological: Weakness. absent: Frequent Falls Past Patient History - Infectious Disease Hx of Infectious Diseases: None - Tetanus Immunizations Tetanus Immunization: Unknown - Past Medical History & Family History Past Medical History?: Yes - Past Social History Smoking Status: Light Smoker < 10 Cigarettes Daily Chewing Tobacco Use: No Cigar Use: No Alcohol: Occasional Home Situation {Lives}: With Family, Other (TAKES CARE OF HER ILL BED RIDDEN ) - CARDIAC Hx Cardiac Disorders: No Hx Hypertension: Yes - PULMONARY Hx Respiratory Disorders: No - NEUROLOGICAL Hx Neurological Disorder: No - HEENT Hx HEENT Problems: No - RENAL Hx Chronic Kidney Disease: No - ENDOCRINE/METABOLIC Hx Endocrine Disorders: No - HEMATOLOGICAL/ONCOLOGICAL Hx Blood Disorders: No Hx Human Immunodeficiency Virus (HIV): No - INTEGUMENTARY Hx Dermatological Problems: No - MUSCULOSKELETAL/RHEUMATOLOGICAL Hx Musculoskeletal Disorders: Yes Hx Back Pain: Yes Hx Falls: No - GASTROINTESTINAL Hx Gastrointestinal Disorders: No Hx Diarrhea: No - GENITOURINARY/GYNECOLOGICAL Hx Genitourinary Disorders: No - PSYCHIATRIC Hx Psychophysiologic Disorder: Yes Hx Anxiety: Yes Hx Substance Use: No - SURGICAL HISTORY Hx Surgeries: Yes Other/Comment: 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 - ANESTHESIA Hx Anesthesia: Yes Hx Anesthesia Reactions: No Hx Malignant Hyperthermia: No Meds Allergies/Adverse Reactions: Allergies Allergy/AdvReac Type Severity Reaction Status Date / Time No Known Allergies Allergy Verified 06/17/17 19:52 - Medications Medications: Current Medications Acetaminophen (Tylenol 325mg Tab) 650 mg PO Q6 PRN PRN Reason: Pain, moderate (4-7) Last Admin: 06/19/17 17:28 Dose: 650 mg Amlodipine Besylate (Norvasc) 10 mg PO DAILY [facility] Last Admin: 06/19/17 10:00 Dose: 10 mg Potassium Chloride/Dextrose/Sod Cl (Potassium Chl 40 Meq In D5-1/2ns) 1,000 mls @ 100 mls/hr IV .Q10H [facility] Last Admin: 06/19/17 16:27 Dose: Not Given Ciprofloxacin (Cipro 400mg/200ml Dsw) 400 mg in 200 mls @ 133 mls/hr IVPB Q12H [facility] PRN Reason: Protocol Metronidazole (Flagyl) 500 mg in 100 mls @ 100 mls/hr IVPB Q8 [facility] PRN Reason: Protocol Pantoprazole Sodium (Protonix Inj) 40 mg IVP Q12H [facility] Last Admin: 06/19/17 12:02 Dose: 40 mg Physical Exam - Constitutional Appears: Toxic - Head Exam Head Exam: NORMAL INSPECTION - Eye Exam Eye Exam: Normal appearance Pupil Exam: NORMAL ACCOMODATION - ENT Exam ENT Exam: Mucous Membranes Dry - Neck Exam Neck exam: Positive for: Normal Inspection - Respiratory Exam Respiratory Exam: Decreased Breath Sounds, NORMAL BREATHING PATTERN - Cardiovascular Exam Cardiovascular Exam: Tachycardia - GI/Abdominal Exam GI & Abdominal Exam: Hyperactive Bowel Sounds, Tenderness. absent: Rebound, Rigid - Rectal Exam Rectal Exam: Deferred - Extremities Exam Extremities exam: Negative for: calf tenderness - Neurological Exam Neurological exam: Alert, Oriented x3 - Psychiatric Exam Psychiatric exam: Anxious, Normal Affect, Normal Mood - Skin Skin Exam: Warm Results - Vital Signs Recent Vital Signs: Last Vital Signs Temp 98.3 F 06/19/17 15:00 Pulse 87 06/19/17 15:00 Resp 20 06/19/17 15:00 BP 133/81 06/19/17 15:00 Pulse Ox 97 06/19/17 15:00 - Labs Result Diagrams: 06/19/17 07:18 06/19/17 07:18 Labs: Laboratory Results - last 24 hr 06/18/17 06/18/17 06/19/17 18:55 18:55 07:18 WBC 13.5 H RBC 4.36 Hgb 12.8 Hct 37.0 MCV 85.0 MCH 29.3 MCHC 34.5 RDW 13.6 Plt Count 201 MPV 9.7 Neut % (Auto) 83.3 H Lymph % (Auto) 8.5 L [place] % (Auto) 7.8 Eos % (Auto) 0.3 Baso % (Auto) 0.1 Neut # (Auto) 11.2 H Lymph # (Auto) 1.1 [place] # (Auto) 1.1 H Eos # (Auto) 0.0 Baso # (Auto) 0.0 Neutrophils % (Manual) 81 H Band Neutrophils % 1 Lymphocytes % (Manual) 10 L Monocytes % (Manual) 7 Eosinophils % (Manual) 1 Platelet Estimate Normal Sodium 135 Potassium 3.7 Chloride 101 Carbon Dioxide 22 Anion Gap 15 BUN 7 Creatinine 0.6 L Est GFR ( Amer) > 60 Est GFR (Non-Af Amer) > 60 Random Glucose 135 H Calcium 8.6 Total Bilirubin 0.6 Direct Bilirubin 0.4 AST 20 ALT 15 Alkaline Phosphatase 89 Total Protein 6.5 Albumin 3.5 D Globulin 3.0 Albumin/Globulin Ratio 1.2 Amylase 56 Lipase 53 Hepatitis A IgM Ab Negative Hep Bs Antigen Negative Hep B Core IgM Ab Negative Hepatitis C Antibody Negative 06/19/17 07:18 WBC RBC Hgb Hct MCV MCH MCHC RDW Plt Count MPV Neut % (Auto) Lymph % (Auto) [place] % (Auto) Eos % (Auto) Baso % (Auto) Neut # (Auto) Lymph # (Auto) [place] # (Auto) Eos # (Auto) Baso # (Auto) Neutrophils % (Manual) Band Neutrophils % Lymphocytes % (Manual) Monocytes % (Manual) Eosinophils % (Manual) Platelet Estimate Sodium 134 Potassium 3.9 Chloride 99 Carbon Dioxide 24 Anion Gap 15 BUN 5 L Creatinine 0.7 Est GFR ( Amer) > 60 Est GFR (Non-Af Amer) > 60 Random Glucose 118 H Calcium 8.5 L Total Bilirubin Direct Bilirubin AST ALT Alkaline Phosphatase Total Protein Albumin Globulin Albumin/Globulin Ratio Amylase Lipase Hepatitis A IgM Ab Hep Bs Antigen Hep B Core IgM Ab Hepatitis C Antibody Assessment & Plan (1) Abdominal pain Status: Acute Priority: Medium (2) Diarrhea Status: Acute Priority: High (3) Rectal bleed Status: Acute Priority: Medium (4) Colitis Status: Acute (5) Leukocytosis Status: Acute Priority: Medium (6) Hypertension Status: Chronic Priority: Low (7) C. difficile enteritis Status: Suspected Priority: High
[2017-06-19] MEDS: Ciprofloxacin 400mg/200ml D5W 400 MG/200 ML BAG IVPB SCH (20:01)
[2017-06-19] MEDS: metroNIDAZOLE IV 500 mg/100 ml 500 MG/100 ML BAG IVPB SCH (21:31)
[2017-06-19] MEDS: Vancomycin 125 MG/5 ML SOLN (ORAL/RECTAL) PO SCH (21:32)
[2017-06-20] MEDS: Potassium Chl 40 mEq in D5-1/2 1,000 ML IV SCH ×2 (02:15→06:12)
[2017-06-20] MEDS: metroNIDAZOLE IV 500 mg/100 ml 500 MG/100 ML BAG IVPB SCH ×3 (05:05→21:31)
[2017-06-20] MEDS: Ciprofloxacin 400mg/200ml D5W 400 MG/200 ML BAG IVPB SCH ×2 (06:11→18:50)
[2017-06-20] MEDS: Vancomycin 125 MG/5 ML SOLN (ORAL/RECTAL) PO SCH ×4 (09:08→21:31)
[2017-06-20 09:11] LABS: HEMOGLOBIN 12.8 g/dL (11.0-16.0); MEAN CELL VOLUME 85.7 fL (81.0-99.0); MEAN PLATELET VOLUME 9.9 fL (7.2-11.7); RBC 4.26 Mil/uL (3.80-5.20); RED CELL DISTRIBUTION WIDTH 13.7 % (11.5-14.5); WHITE BLOOD COUNT 9.4 K/uL (4.8-10.8)
[2017-06-20 09:26] LABS: BLOOD UREA NITROGEN 4 mg/dL (7-17); CALCIUM 8.4 mg/dl (8.6-10.4); GFR AFRICAN-AMERICAN > 60; GFR NON-AFRICAN AMERICAN > 60
--- NOTE | 2017-06-20 09:46 | CP.PCM.PN ---
Subjective - Date & Time of Evaluation Date of Evaluation: 06/20/17 Time of Evaluation: 09:43 - Subjective Subjective: f/u diarrhea Was feeling worsse yest with bloating, diarrhea and fever. Feels better today- Less diarrhea. No fever. Less gas. Seen by Dr Reddy. I called Dr Robertson yest and discussed case with him yest. Denies RB, melena, CP, SOb, LYON, hematuria, hemoptysis. + cough Objective - Vital Signs/Intake and Output Vital Signs (last 24 hours): Temp Pulse Resp BP Pulse Ox 98.5 F 80 20 114/70 98 06/20/17 08:29 06/20/17 08:29 06/20/17 08:29 06/20/17 08:29 06/20/17 08:29 Intake and Output: 06/20/17 06/20/17 06:59 18:59 Intake Total 2350 Output Total 500 Balance 1850 - Medications Medications: Current Medications Acetaminophen (Tylenol 325mg Tab) 650 mg PO Q6 PRN PRN Reason: Pain, moderate (4-7) Last Admin: 06/19/17 23:53 Dose: 650 mg Amlodipine Besylate (Norvasc) 10 mg PO DAILY [facility] Last Admin: 06/20/17 09:08 Dose: 10 mg Ciprofloxacin (Cipro 400mg/200ml Dsw) 400 mg in 200 mls @ 133 mls/hr IVPB Q12H [facility] PRN Reason: Protocol Last Admin: 06/20/17 06:11 Dose: 133 mls/hr Metronidazole (Flagyl) 500 mg in 100 mls @ 100 mls/hr IVPB Q8 [facility] PRN Reason: Protocol Last Admin: 06/20/17 05:05 Dose: 100 mls/hr Pantoprazole Sodium (Protonix Inj) 40 mg IVP Q12H [facility] Last Admin: 06/20/17 00:13 Dose: 40 mg Vancomycin HCl (Vancocin (Oral Or Rectal Use)) 125 mg PO QID [facility] PRN Reason: Protocol Last Admin: 06/20/17 09:08 Dose: 125 mg - Labs Labs: 06/20/17 08:57 06/20/17 08:57 - Constitutional Appears: Well - Respiratory Exam Respiratory Exam: Clear to Ausculation Bilateral - Cardiovascular Exam Cardiovascular Exam: RRR - GI/Abdominal Exam GI & Abdominal Exam: Soft, Tenderness, Normal Bowel Sounds. absent: Firm, Guarding, Rebound Additional comments: mild mid tenderness - Extremities Exam Extremities Exam: absent: Pedal Edema - Neurological Exam Neurological Exam: Alert, Oriented x3 Assessment and Plan (1) Diarrhea Assessment & Plan: colitis. C diff neg, but considering c diff. Vanco added. Clinda- stopped. Clinically improving. Afeb. WBC- nl Colonosocpy in future- discussed with patient. Status: Acute (2) Abdominal pain Status: Acute (3) Rectal bleed Status: Acute (4) Colitis Status: Acute (5) Leukocytosis Status: Acute
--- NOTE | 2017-06-20 22:21 | CP.PCM.PN ---
Subjective - Date & Time of Evaluation Date of Evaluation: 06/20/17 Time of Evaluation: 08:45 - Subjective Subjective: Still c/o diarrhea Objective - Vital Signs/Intake and Output Vital Signs (last 24 hours): Temp Pulse Resp BP Pulse Ox 98.6 F 82 18 120/78 98 06/20/17 16:00 06/20/17 16:00 06/20/17 16:00 06/20/17 16:00 06/20/17 16:00 Intake and Output: 06/20/17 06/20/17 11:59 23:59 Intake Total 1000 1100 Output Total 600 Balance 1000 500 - Medications Medications: Current Medications Acetaminophen (Tylenol 325mg Tab) 650 mg PO Q6 PRN PRN Reason: Pain, moderate (4-7) Last Admin: 06/20/17 13:43 Dose: 650 mg Amlodipine Besylate (Norvasc) 10 mg PO DAILY [facility] Last Admin: 06/20/17 09:08 Dose: 10 mg Ciprofloxacin (Cipro 400mg/200ml Dsw) 400 mg in 200 mls @ 133 mls/hr IVPB Q12H [facility] PRN Reason: Protocol Last Admin: 06/20/17 18:50 Dose: 133 mls/hr Metronidazole (Flagyl) 500 mg in 100 mls @ 100 mls/hr IVPB Q8 [facility] PRN Reason: Protocol Last Admin: 06/20/17 21:31 Dose: 100 mls/hr Pantoprazole Sodium (Protonix Inj) 40 mg IVP Q12H [facility] Last Admin: 06/20/17 11:52 Dose: 40 mg Vancomycin HCl (Vancocin (Oral Or Rectal Use)) 125 mg PO QID [facility] PRN Reason: Protocol Last Admin: 06/20/17 21:31 Dose: 125 mg - Labs Labs: 06/20/17 08:57 06/20/17 08:57 - Constitutional Appears: No Acute Distress - Head Exam Head Exam: NORMAL INSPECTION - Eye Exam Eye Exam: Normal appearance - ENT Exam ENT Exam: Mucous Membranes Moist - Neck Exam Neck Exam: Full ROM - Respiratory Exam Respiratory Exam: NORMAL BREATHING PATTERN - GI/Abdominal Exam GI & Abdominal Exam: Hyperactive Bowel Sounds - Rectal Exam Rectal Exam: NORMAL INSPECTION - Extremities Exam Extremities Exam: Normal Inspection - Neurological Exam Neurological Exam: Awake, CN II-XII Intact, Oriented x3 - Psychiatric Exam Psychiatric exam: Normal Mood Assessment and Plan (1) Dehydration Status: Acute (2) Abdominal pain Status: Acute (3) Colitis Status: Acute (4) Diarrhea Status: Acute (5) Rectal bleed Status: Acute (6) Hypopotassemia Status: Acute
[2017-06-21 00:47] VITALS: RESP 20
[2017-06-21] MEDS: metroNIDAZOLE IV 500 mg/100 ml 500 MG/100 ML BAG IVPB SCH ×3 (05:00→21:37)
[2017-06-21] MEDS: Ciprofloxacin 400mg/200ml D5W 400 MG/200 ML BAG IVPB SCH ×2 (06:14→19:18)
[2017-06-21 07:54] LABS: BASO % 0.3 % (0.0-2.0); EOS # 0.2 K/uL (0.0-0.7); EOS % 1.7 % (0.0-4.0); HEMOGLOBIN 13.2 g/dL (11.0-16.0); LYMPH # 1.3 K/uL (1.0-4.3); LYMPH % 14.1 % (20.0-40.0); MEAN CELL VOLUME 85.6 fL (81.0-99.0); MEAN CORPUSCULAR HGB CONC 35.1 g/dL (33.0-37.0); MONO # 0.7 K/uL (0.0-0.8); MONO % 7.4 % (0.0-10.0); NEUT % 76.5 % (50.0-75.0); RBC 4.4 Mil/uL (3.80-5.20); RED CELL DISTRIBUTION WIDTH 13.8 % (11.5-14.5); WHITE BLOOD COUNT 9.2 K/uL (4.8-10.8)
[2017-06-21 08:15] LABS: BLOOD UREA NITROGEN 7 mg/dL (7-17); CALCIUM 8.5 mg/dl (8.6-10.4); GFR AFRICAN-AMERICAN > 60; GFR NON-AFRICAN AMERICAN > 60
--- NOTE | 2017-06-21 08:46 | CP.PCM.PN ---
Subjective - Date & Time of Evaluation Date of Evaluation: 06/21/17 Time of Evaluation: 08:41 - Subjective Subjective: F/u diarrhea Reports continuing to feel better. Reports less abdom pain, less diarrhea. Less abdom gas and bloating. No RB. On flagyl, tjo Denies RB, melena, fever, chills, SZ, LOC, LYON, hematuria., hemoptysis Objective - Vital Signs/Intake and Output Vital Signs (last 24 hours): Temp Pulse Resp BP Pulse Ox 98.2 F 68 20 124/86 98 06/21/17 00:00 06/21/17 00:00 06/21/17 00:00 06/21/17 00:00 06/21/17 00:00 Intake and Output: 06/21/17 06/21/17 06:59 18:59 Intake Total 1070 Output Total 600 Balance 470 - Medications Medications: Current Medications Acetaminophen (Tylenol 325mg Tab) 650 mg PO Q6 PRN PRN Reason: Pain, moderate (4-7) Last Admin: 06/20/17 13:43 Dose: 650 mg Amlodipine Besylate (Norvasc) 10 mg PO DAILY [facility] Last Admin: 06/20/17 09:08 Dose: 10 mg Ciprofloxacin (Cipro 400mg/200ml Dsw) 400 mg in 200 mls @ 133 mls/hr IVPB Q12H [facility] PRN Reason: Protocol Last Admin: 06/21/17 06:14 Dose: 133 mls/hr Metronidazole (Flagyl) 500 mg in 100 mls @ 100 mls/hr IVPB Q8 [facility] PRN Reason: Protocol Last Admin: 06/21/17 05:00 Dose: 100 mls/hr Pantoprazole Sodium (Protonix Inj) 40 mg IVP Q12H [facility] Last Admin: 06/21/17 00:18 Dose: 40 mg Vancomycin HCl (Vancocin (Oral Or Rectal Use)) 125 mg PO QID [facility] PRN Reason: Protocol Last Admin: 06/20/17 21:31 Dose: 125 mg - Labs Labs: 06/21/17 07:42 06/21/17 07:42 - Constitutional Appears: Well - Respiratory Exam Respiratory Exam: Clear to Ausculation Bilateral - Cardiovascular Exam Cardiovascular Exam: RRR - GI/Abdominal Exam GI & Abdominal Exam: Soft, Tenderness, Normal Bowel Sounds. absent: Mass, Rebound Additional comments: mild mid abdom pain - Extremities Exam Extremities Exam: absent: Pedal Edema - Neurological Exam Neurological Exam: Alert, Oriented x3 Assessment and Plan (1) Diarrhea Assessment & Plan: colitis. Improving Status: Acute (2) Abdominal pain Status: Acute (3) Rectal bleed Assessment & Plan: Stopped. Hb stable. Status: Acute (4) Colitis Assessment & Plan: On CT. Considering c diff. Stool test neg. Improving on flagyl and po vanco. Rec: Cont meds. Tolerating diet. I discussed outpatient colonoscopy with pt. Status: Acute (5) Leukocytosis Assessment & Plan: better Status: Acute (6) Hypopotassemia Assessment & Plan: replace as per PMD. Status: Acute
[2017-06-21] MEDS: Vancomycin 125 MG/5 ML SOLN (ORAL/RECTAL) PO SCH ×4 (09:10→21:36)
[2017-06-21] MEDS ORDERED: Potassium Chloride 20 mEq ER Tab PO STA ×2 (10:15→10:19)
--- NOTE | 2017-06-21 12:57 | RAD ---
HISTORY: Cough and congestion COMPARISON: No prior. TECHNIQUE: Chest PA and lateral FINDINGS: LUNGS: No active pulmonary disease. PLEURA: No significant pleural effusion identified. No pneumothorax apparent. CARDIOVASCULAR: Normal. OSSEOUS STRUCTURES: No significant abnormalities. VISUALIZED UPPER ABDOMEN: Normal. OTHER FINDINGS: None. IMPRESSION: No interval acute cardiopulmonary disease appreciated.
--- NOTE | 2017-06-21 14:42 | CP.PCM.PN ---
Subjective - Date & Time of Evaluation Date of Evaluation: 06/21/17 Time of Evaluation: 14:42 - Subjective Subjective: Patient c/o same profuse diarrhea, watery no blood. Wait for new stools c/s and c.diff. Objective - Vital Signs/Intake and Output Vital Signs (last 24 hours): Temp Pulse Resp BP Pulse Ox 98.2 F 79 20 124/82 95 06/21/17 07:00 06/21/17 07:00 06/21/17 07:00 06/21/17 07:00 06/21/17 07:00 Intake and Output: 06/21/17 06/21/17 11:59 23:59 Intake Total 470 Balance 470 - Medications Medications: Current Medications Acetaminophen (Tylenol 325mg Tab) 650 mg PO Q6 PRN PRN Reason: Pain, moderate (4-7) Last Admin: 06/20/17 13:43 Dose: 650 mg Amlodipine Besylate (Norvasc) 10 mg PO DAILY [facility] Last Admin: 06/21/17 09:10 Dose: 10 mg Ciprofloxacin (Cipro 400mg/200ml Dsw) 400 mg in 200 mls @ 133 mls/hr IVPB Q12H [facility] PRN Reason: Protocol Last Admin: 06/21/17 06:14 Dose: 133 mls/hr Metronidazole (Flagyl) 500 mg in 100 mls @ 100 mls/hr IVPB Q8 [facility] PRN Reason: Protocol Last Admin: 06/21/17 14:03 Dose: 100 mls/hr Pantoprazole Sodium (Protonix Inj) 40 mg IVP Q12H [facility] Last Admin: 06/21/17 12:05 Dose: 40 mg Vancomycin HCl (Vancocin (Oral Or Rectal Use)) 125 mg PO QID [facility] PRN Reason: Protocol Last Admin: 06/21/17 14:03 Dose: 125 mg - Labs Labs: 06/21/17 07:42 06/21/17 07:42 - Constitutional Appears: No Acute Distress - Head Exam Head Exam: ATRAUMATIC, NORMAL INSPECTION, NORMOCEPHALIC - Eye Exam Eye Exam: Normal appearance - ENT Exam ENT Exam: Mucous Membranes Dry - Neck Exam Neck Exam: Full ROM - Respiratory Exam Respiratory Exam: Clear to Ausculation Bilateral - Cardiovascular Exam Cardiovascular Exam: REGULAR RHYTHM, +S1, +S2 - GI/Abdominal Exam GI & Abdominal Exam: Soft, Hypoactive Bowel Sounds - Neurological Exam Neurological Exam: Alert, Awake, CN II-XII Intact, Normal Gait, Oriented x3 - Psychiatric Exam Psychiatric exam: Normal Affect - Skin Skin Exam: Normal Color Assessment and Plan (1) Dehydration Status: Acute (2) Abdominal pain Status: Acute (3) Colitis Status: Acute (4) Diarrhea Status: Acute (5) Rectal bleed Status: Acute (6) Hypopotassemia Status: Acute - Assessment and Plan (Free Text) Plan: The nature of the diarrhea is not clear. patient still symptomatic and labs are pending . will continue present rx
[2017-06-21] MEDS: Enoxaparin 40 mg Syringe SC SCH (15:09)
[2017-06-21] MEDS: guaiFENesin 100 mg/5 ml Syrup UD PO PRN ×2 (15:09→21:38)
[2017-06-21] MEDS: Lactobacillus Acidophilus 500 MU Cap PO SCH (17:34)
[2017-06-22] MEDS: metroNIDAZOLE IV 500 mg/100 ml 500 MG/100 ML BAG IVPB SCH ×2 (05:00→13:12)
[2017-06-22] MEDS: Ciprofloxacin 400mg/200ml D5W 400 MG/200 ML BAG IVPB SCH (06:21)
[2017-06-22 08:08] VITALS: TEMP 97.9; O2SAT 96
[2017-06-22 08:08] LABS: BASO % 0.3 % (0.0-2.0); EOS # 0.1 K/uL (0.0-0.7); EOS % 1.5 % (0.0-4.0); HEMOGLOBIN 12.8 g/dL (11.0-16.0); LYMPH # 1.6 K/uL (1.0-4.3); MEAN CELL VOLUME 85.6 fL (81.0-99.0); MEAN CORPUSCULAR HEMOGLOBIN 29.5 pg (27.0-31.0); MEAN CORPUSCULAR HGB CONC 34.5 g/dL (33.0-37.0); MEAN PLATELET VOLUME 9.3 fL (7.2-11.7); MONO # 0.7 K/uL (0.0-0.8); NEUT # 5.3 K/uL (1.8-7.0); NEUT % 68.2 % (50.0-75.0); RBC 4.33 Mil/uL (3.80-5.20); RED CELL DISTRIBUTION WIDTH 13.4 % (11.5-14.5); WHITE BLOOD COUNT 7.8 K/uL (4.8-10.8)
[2017-06-22 08:30] LABS: BLOOD UREA NITROGEN 7 mg/dL (7-17); CALCIUM 8.6 mg/dl (8.6-10.4); GFR AFRICAN-AMERICAN > 60; GFR NON-AFRICAN AMERICAN > 60
[2017-06-22] MEDS ORDERED: Potassium Chloride 20 mEq ER Tab PO ONE (09:49)
[2017-06-22] MEDS: Lactobacillus Acidophilus 500 MU Cap PO SCH (09:56)
[2017-06-22] MEDS: Vancomycin 125 MG/5 ML SOLN (ORAL/RECTAL) PO SCH ×2 (09:56→13:11)
[2017-06-22 09:59] VITALS: BP 125/84; PULSE 74
[2017-06-22] MEDS: Enoxaparin 40 mg Syringe SC SCH (10:06)
--- NOTE | 2017-06-22 11:31 | CP.PCM.PN ---
Subjective - Date & Time of Evaluation Date of Evaluation: 06/21/17 Time of Evaluation: 10:00 - Subjective Subjective: INFECTIUS DISEASE PROGRESS NOTES BERNICE MI MD, FACP 3T 350-B 06/21/2017 CHART REVIEWED PT EXAMINED CASE DISCUSSED F/u diarrhea Reports continuing to feel better. Reports less abdom pain, less diarrhea. Less abdom gas and bloating. No RB. On flagyl, vanco, CIPRO Denies RB, melena, fever, chills, SZ, LOC, LYON, hematuria., hemoptysis OBSERVE, CONSIDER D/CING CIPRO SOON, WHERE'S THE STOOL RESULTS??? Objective - Vital Signs/Intake and Output Vital Signs (last 24 hours): Temp Pulse Resp BP Pulse Ox 97.9 F 74 20 125/84 96 06/22/17 08:06 06/22/17 09:58 06/22/17 08:06 06/22/17 09:58 06/22/17 08:06 Intake and Output: 06/22/17 06/22/17 06:59 18:59 Intake Total 1120 Output Total 800 Balance 320 - Medications Medications: Current Medications Acetaminophen (Tylenol 325mg Tab) 650 mg PO Q6 PRN PRN Reason: Pain, moderate (4-7) Last Admin: 06/20/17 13:43 Dose: 650 mg Amlodipine Besylate (Norvasc) 10 mg PO DAILY [facility] Last Admin: 06/22/17 09:56 Dose: 10 mg Enoxaparin Sodium (Lovenox) 40 mg SC DAILY [facility] Last Admin: 06/22/17 10:06 Dose: Not Given Guaifenesin (Robitussin) 100 mg PO Q4H PRN PRN Reason: Cough Last Admin: 06/21/17 21:38 Dose: 100 mg Ciprofloxacin (Cipro 400mg/200ml Dsw) 400 mg in 200 mls @ 133 mls/hr IVPB Q12H [facility] PRN Reason: Protocol Last Admin: 06/22/17 06:21 Dose: 133 mls/hr Metronidazole (Flagyl) 500 mg in 100 mls @ 100 mls/hr IVPB Q8 [facility] PRN Reason: Protocol Last Admin: 06/22/17 05:00 Dose: 100 mls/hr Lactobacillus Acidophilus (Bacid Acidophilus) 1 cap PO BID [facility] Last Admin: 06/22/17 09:56 Dose: 1 cap Pantoprazole Sodium (Protonix Inj) 40 mg IVP Q12H [facility] Last Admin: 06/22/17 00:27 Dose: 40 mg Saccharomyces Boulardii (Florastor) 500 mg PO BIDPC [facility] Vancomycin HCl (Vancocin (Oral Or Rectal Use)) 125 mg PO QID [facility] PRN Reason: Protocol Last Admin: 06/22/17 09:56 Dose: 125 mg - Labs Labs: 06/22/17 07:54 06/22/17 07:54 Assessment and Plan (1) Abdominal pain Status: Acute (2) Diarrhea Status: Acute (3) Rectal bleed Status: Acute (4) Colitis Status: Acute (5) Leukocytosis Status: Acute (6) Hypertension Status: Chronic (7) C. difficile enteritis Status: Suspected
--- NOTE | 2017-06-22 12:47 | CP.PCM.DIS ---
Provider - Provider Date of Admission: 06/17/17 21:45 Attending physician: Sunday Robertson MD Time Spent in preparation of Discharge (in minutes): 30 Diagnosis - Discharge Diagnosis (1) Dehydration Status: Acute (2) Abdominal pain Status: Acute Priority: Medium (3) Colitis Status: Acute (4) Diarrhea Status: Acute Priority: High (5) Rectal bleed Status: Acute Priority: Medium (6) Hypopotassemia Status: Acute Hospital Course - Lab Results Lab Results: Micro Results 06/18/17 01:30 Blood-Venous Blood Culture - Preliminary NO GROWTH AFTER 4 DAYS 06/18/17 01:30 Blood-Venous Blood Culture - Preliminary NO GROWTH AFTER 4 DAYS 06/19/17 19:05 Blood-Venous Blood Culture - Preliminary NO GROWTH AFTER 48 HOURS 06/19/17 20:04 Blood-Venous Blood Culture - Preliminary NO GROWTH AFTER 48 HOURS 06/18/17 09:58 Stool Stool Culture - Final NO SALMONELLA, SHIGELLA OR CAMPYLOBACTER ISOLATED. 06/18/17 01:25 Urine,Clean Catch Urine Culture - Final No Growth (<1,000 CFU/ML) Most Recent Lab Values WBC 7.8 K/uL (4.8-10.8) 06/22/17 07:54 RBC 4.33 Mil/uL (3.80-5.20) 06/22/17 07:54 Hgb 12.8 g/dL (11.0-16.0) 06/22/17 07:54 Hct 37.0 % (34.0-47.0) 06/22/17 07:54 MCV 85.6 fL (81.0-99.0) 06/22/17 07:54 MCH 29.5 pg (27.0-31.0) 06/22/17 07:54 MCHC 34.5 g/dL (33.0-37.0) 06/22/17 07:54 RDW 13.4 % (11.5-14.5) 06/22/17 07:54 Plt Count 245 K/uL (130-400) 06/22/17 07:54 MPV 9.3 fL (7.2-11.7) 06/22/17 07:54 Neut % (Auto) 68.2 % (50.0-75.0) 06/22/17 07:54 Lymph % (Auto) 21.0 % (20.0-40.0) 06/22/17 07:54 [place] % (Auto) 9.0 % (0.0-10.0) 06/22/17 07:54 Eos % (Auto) 1.5 % (0.0-4.0) 06/22/17 07:54 Baso % (Auto) 0.3 % (0.0-2.0) 06/22/17 07:54 Neut # (Auto) 5.3 K/uL (1.8-7.0) 06/22/17 07:54 Lymph # (Auto) 1.6 K/uL (1.0-4.3) 06/22/17 07:54 [place] # (Auto) 0.7 K/uL (0.0-0.8) 06/22/17 07:54 Eos # (Auto) 0.1 K/uL (0.0-0.7) 06/22/17 07:54 Baso # (Auto) 0.0 K/uL (0.0-0.2) 06/22/17 07:54 Neutrophils % (Manual) 81 % (50-75) H 06/19/17 07:18 Band Neutrophils % 1 % (0-2) 06/19/17 07:18 Lymphocytes % (Manual) 10 % (20-40) L 06/19/17 07:18 Monocytes % (Manual) 7 % (0-10) 06/19/17 07:18 Eosinophils % (Manual) 1 % (0-4) 06/19/17 07:18 Platelet Estimate Normal (NORMAL) 06/19/17 07:18 RBC Morphology Normal 06/18/17 09:55 Sodium 136 mmol/L (132-148) 06/22/17 07:54 Potassium 3.5 mmol/L (3.6-5.2) L 06/22/17 07:54 Chloride 98 mmol/L (98-107) 06/22/17 07:54 Carbon Dioxide 27 mmol/L (22-30) 06/22/17 07:54 Anion Gap 14 (10-20) 06/22/17 07:54 BUN 7 mg/dL (7-17) 06/22/17 07:54 Creatinine 0.7 mg/dL (0.7-1.2) 06/22/17 07:54 Est GFR ( Amer) > 60 06/22/17 07:54 Est GFR (Non-Af Amer) > 60 06/22/17 07:54 Random Glucose 98 mg/dL (65-105) 06/22/17 07:54 Lactic Acid 0.6 mmol/L (0.7-2.1) L 06/18/17 01:57 Calcium 8.6 mg/dl (8.6-10.4) 06/22/17 07:54 Total Bilirubin 0.6 mg/dL (0.2-1.3) 06/18/17 18:55 Direct Bilirubin 0.4 mg/dL (0.0-0.4) 06/18/17 18:55 AST 20 U/L (14-36) 06/18/17 18:55 ALT 15 U/L (9-52) 06/18/17 18:55 Alkaline Phosphatase 89 U/L (38-126) 06/18/17 18:55 Total Protein 6.5 g/dL (6.3-8.3) 06/18/17 18:55 Albumin 3.5 g/dL (3.5-5.0) D 06/18/17 18:55 Globulin 3.0 gm/dL (2.2-3.9) 06/18/17 18:55 Albumin/Globulin Ratio 1.2 (1.0-2.1) 06/18/17 18:55 Amylase 56 U/L (30-110) 06/18/17 18:55 Lipase 53 U/L (23-300) 06/18/17 18:55 Urine Color Yellow (YELLOW) 06/17/17 21:09 Urine Clarity Clear (Clear) 06/17/17 21:09 Urine pH 5.0 (5.0-8.0) 06/17/17 21:09 Ur Specific [place] 1.021 (1.003-1.030) 06/17/17 21:09 Urine Protein 1+ mg/dL (NEGATIVE) H 06/17/17 21:09 Urine Glucose (UA) Normal mg/dL (Normal) 06/17/17 21:09 Urine Ketones 1+ mg/dL (NEGATIVE) H 06/17/17 21:09 Urine Blood Negative (NEGATIVE) 06/17/17 21:09 Urine Nitrate Negative (NEGATIVE) 06/17/17 21:09 Urine Bilirubin Negative (NEGATIVE) 06/17/17 21:09 Urine Urobilinogen Normal mg/dL (0.2-1.0) 06/17/17 21:09 Ur Leukocyte Esterase 1+ Yuri/uL (Negative) H 06/17/17 21:09 Urine WBC (Auto) 3 /hpf (0-5) 06/17/17 21:09 Urine RBC (Auto) 1 /hpf (0-3) 06/17/17 21:09 Ur Squamous Epith Cells 3 /hpf (0-5) 06/17/17 21:09 Uric Acid Crystals Occ /hpf (<OCC) H 06/17/17 21:09 Stool Leukocytes, Qual Negative (NEGATIVE) 06/19/17 18:45 C. difficile Ag & Toxin Negative (NEGATIVE) 06/20/17 16:30 Hepatitis A IgM Ab Negative (NEGATIVE) 06/18/17 18:55 Hep Bs Antigen Negative (NEGATIVE) 06/18/17 18:55 Hep B Core IgM Ab Negative (NEGATIVE) 06/18/17 18:55 Hepatitis C Antibody Negative (NEGATIVE) 06/18/17 18:55 - Hospital Course Hospital Course: 56 y/o lady with hx of htn presented in ER with persistent nausea, vomiting, profuse diarrhea and abdominal pain x 4 days. The was was seen in ER and eventually dc on anti bx medication. She poorly responded to the oral antibx and she continue to c/o diarrhea, watery, with blood with severe cramping , tenesmus nausea and vomiting. The stool appears watery with blood and foul odor. Patient does not recall any unusual food and no contact with people with similar c/o. The ctscan reveled a diffuse severe colitis. Patietn was started on iv antibx and she improved. Today no c/o no diarrhea, no hematochesia, no melena H/H stable, hemodynamically stable. Will dc home on oral medications. F/ U in PMD office in 3 days. Discharge Exam - Head Exam Head Exam: ATRAUMATIC, NORMAL INSPECTION, NORMOCEPHALIC - Eye Exam Eye Exam: Normal appearance Pupil Exam: NORMAL ACCOMODATION - ENT Exam ENT Exam: Mucous Membranes Moist - Neck Exam Neck exam: Full Rom - Respiratory Exam Respiratory Exam: Clear to PA & Lateral - Cardiovascular Exam Cardiovascular Exam: REGULAR RHYTHM, +S1, +S2 - GI/Abdominal Exam GI & Abdominal Exam: Normal Bowel Sounds, Unremarkable - Extremities Exam Extremities exam: normal inspection - Neurological Exam Neurological exam: Alert, CN II-XII Intact, Normal Gait, Oriented x3, Reflexes Normal - Psychiatric Exam Psychiatric exam: Normal Affect - Skin Skin Exam: Normal Color Discharge Plan - Follow Up Plan Condition: STABLE Disposition: HOME/ ROUTINE
[2017-06-22] MEDS ORDERED: Saccharomyces Boulardi 250 mg Cap PO SCH (18:00)
== END 2017-06-22 15:44 | disposition home or self-care (01) | DRG 813 ==
LOC: C.ER 19:00 → C.9E 21:45 → C.3T 22:37
PROVIDERS: ADMIT Internal Medicine; ATTEND Internal Medicine
DX: A09 Infectious gastroenteritis and colitis, unspecified (principal); K62.5 Hemorrhage of anus and rectum; E87.6 Hypokalemia; E86.0 Dehydration; F17.210 Nicotine dependence, cigarettes, uncomplicated; I10 Essential (primary) hypertension; F41.9 Anxiety disorder, unspecified; D72.829 Elevated white blood cell count, unspecified

== ENCOUNTER 2017-12-01 18:29 | Observation (INO) | payer OTHER ==
[2017-12-01 18:29] VITALS: BMI 22.8
[2017-12-01] MEDS ORDERED: Aspirin 325 mg EC Tablets PO STA (19:28)
[2017-12-01] MEDS ORDERED: Nitroglycerin 2% Ointment Foilpak UD TOP STA (19:29)
[2017-12-01] MEDS ORDERED: Aspirin 325 mg EC Tablets PO ONE (19:37)
[2017-12-01] MEDS ORDERED: Nitroglycerin 2% Ointment Foilpak UD TOP ONE (19:37)
[2017-12-01 19:41] LABS: BASO % 0.3 % (0.0-2.0); EOS # 0.1 K/uL (0.0-0.7); EOS % 0.7 % (0.0-4.0); LYMPH # 2.5 K/uL (1.0-4.3); LYMPH % 26.1 % (20.0-40.0); MEAN CELL VOLUME 86.8 fL (81.0-99.0); MEAN CORPUSCULAR HEMOGLOBIN 30.6 pg (27.0-31.0); MEAN CORPUSCULAR HGB CONC 35.2 g/dL (33.0-37.0); MEAN PLATELET VOLUME 10.5 fL (7.2-11.7); MONO # 0.6 K/uL (0.0-0.8); MONO % 6.7 % (0.0-10.0); NEUT # 6.2 K/uL (1.8-7.0); NEUT % 66.2 % (50.0-75.0); NRBC % 0.2 % (0.0-2.0); RBC 4.57 Mil/uL (3.80-5.20); RED CELL DISTRIBUTION WIDTH 13.2 % (11.5-14.5); WHITE BLOOD COUNT 9.4 K/uL (4.8-10.8)
[2017-12-01 19:54] LABS: ALB/GLOB RATIO 1.6 (1.0-2.1); ALBUMIN 4.1 g/dL (3.5-5.0); ALT/SGPT 20 U/L (9-52); AST/SGOT 13 U/L (14-36); BLOOD UREA NITROGEN 19 mg/dL (7-17); CALCIUM 9.3 mg/dl (8.6-10.4); GFR NON-AFRICAN AMERICAN > 60
[2017-12-01 20:05] LABS: B-TYPE NATRIURETIC PEPTIDE 84.6 pg/mL (0-900)
[2017-12-01 20:09] LABS: INR 1.1; PROTHROMBIN TIME 11.7 SECONDS (9.7-12.2)
--- NOTE | 2017-12-01 20:20 | C.PDOC ---
History Of Present Illness 56 year old female presents to the ER with a complaint of a waxing and waning precordial pain that has been ongoing for a year. Patient had a coronary cath in 2017 for coronary vasospasm resolved with nitro. Patient is no currently on any nitro based medications. Patient still smokes half a pack a day. Denies fever, chills, SOB, nausea, or vomiting. Time Seen by Provider: 12/01/17 19:25 Chief Complaint (Nursing): Chest Pain History Per: Patient History/Exam Limitations: no limitations Onset/Duration Of Symptoms: Days Current Symptoms Are (Timing): Still Present Associated Symptoms: denies: Nausea, Dyspnea, Diaphoresis, Syncope Modifying Factors: None Exacerbating Factors: None Alleviating Factors: None Recent travel outside of the [place]: No Past Medical History Reviewed: Historical Data, Nursing Documentation, Vital Signs Vital Signs: Last Vital Signs Temp 98.6 F 12/01/17 18:37 Pulse 81 12/01/17 19:00 Resp 14 12/01/17 19:00 BP 143/95 H 12/01/17 19:00 Pulse Ox 99 12/01/17 19:00 - Medical History PMH: Anxiety, Back Problems, HTN Denies: HIV, Chronic Kidney Disease - [facility] Procedures FLUOROSCOPY OF LEFT HEART USING LOW OSMOLAR CONTRAST (04/19/16) FLUOROSCOPY OF MULT COR ART USING L OSM CONTRAST (04/19/16) MEASURE CARDIAC SAMPL & PRESSURE, BILATERAL, PERC (04/19/16) Family History: States: Unknown Family Hx - Social History Hx Tobacco Use: Yes Hx Alcohol Use: No Hx Substance Use: No - Immunization History Hx Tetanus Toxoid Vaccination: Yes Hx Influenza Vaccination: Yes Hx Pneumococcal Vaccination: Yes Review Of Systems Constitutional: Negative for: Fever, Chills Cardiovascular: Positive for: Other (Precordial pain). Negative for: Chest Pain, Palpitations Respiratory: Negative for: Cough, Shortness of Breath Gastrointestinal: Negative for: Nausea, Vomiting Skin: Negative for: Rash Neurological: Negative for: Weakness, Numbness Physical Exam - Physical Exam Appears: Non-toxic Skin: Normal Color, Warm, Dry Head: Atraumatic, Normacephalic Eye(s): bilateral: Normal Inspection Oral Mucosa: Moist Neck: Normal, Supple Chest: Symmetrical, No Tenderness Cardiovascular: Rhythm Regular Respiratory: Normal Breath Sounds, No Rales, No Rhonchi, No Wheezing Gastrointestinal/Abdominal: Soft, No Tenderness Back: No CVA Tenderness Extremity: Normal ROM (x4) Neurological/Psych: Oriented x3, Normal Speech Gait: Steady ED Course And Treatment - Laboratory Results Result Diagrams: 12/01/17 19:38 12/01/17 19:38 Lab Interpretation: Normal (bnp/trop neg.) ECG: Interpreted By Me ECG Rhythm: Sinus Rhythm ECG Interpretation: Normal, No Acute Changes Rate From EC O2 Sat by Pulse Oximetry: 99 Pulse Ox Interpretation: Normal - Radiology CXR: Interpreted by Me CXR Interpretation: Yes: No Acute Disease Progress Note: o2, ntp Reevaluation Time: 20:18 Reassessment Condition: Improved - Physician Consult Information Outcome Of Conversation: 193: d/w Dr Robertson, out of [facility], recommends adm to Hospitalists. 2020: d/w Hospitalists; Dr. Dayron acosta to admit. Medical Decision Making Medical Decision Making: prior card cath showing clean coronaries, + vasospasm prior tx with nitroglycerine based meds, pt now not taking any ? lost to f/u Still smoking 1/2 ppd Improved with NTP in ED Adm for Obs Nicotine patch and smoking cessation as inpt. Disposition Doctor Will See Patient In The: Hospital Counseled Patient/Family Regarding: Studies Performed, Diagnosis - Disposition Disposition: HOSPITALIZED Disposition Time: 20:20 Condition: GOOD - Clinical Impression Clinical Impression: Precordial pain - Scribe Statement The provider has reviewed the documentation as recorded by the Scribnathaniel Clark All medical record entries made by the Scribe were at my direction and per sonally dictated by me. I have reviewed the chart and agree that the record accurately reflects my personal performance of the history, physical exam, medical decision making, and the department course for this patient. I have also personally directed, reviewed, and agree with the discharge instructions and disposition.
--- NOTE | 2017-12-01 21:14 | CP.PCM.HP ---
<Mary Arnold - Last Filed: 12/02/17 06:03> History of Present Illness - History of Present Illness History of Present Illness: History and Physical - Hospitalist Service CC: Chest pain HPI: Patient is a 56 year old female with past medical history of Hypertension and coronary artery spasm who presents to the emergency department for chest pain. Patient states that the night prior to arrival she was sleeping and at about 3am she started experiencing left sided chest pain and left arm pain. This was associated with lightheadedness, fatigue and palpitations. Palpitations lasted about 5-10 minutes. Patient states that she was able to go back to sleep. In the morning when she woke up she felt better but was still fatigued. She reports that the chest pain was still there but not as severe. She admits to feeling palpitations again when walking to store. She noted having to stop while walking due to the chest discomfort. Patient states that she has had angina before in the past but this feels different. Currently she denies headaches, nausea/vomiting, dizziness, cp, palpitations, sob, abdominal pain, urinary symptoms, changes in bowel habits. She reports having a persistent dry cough that is worse at night for the past week. Denies any nasal congestion, rhinorrhea, sick contacts, or recent travel. 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, BTL Social History: Smokes more than 1/2 ppd for many years; denies alcohol or drug use Family History: Denies Present on Admission - Present on Admission Any Indicators Present on Admission: No Past Patient History - Infectious Disease Hx of Infectious Diseases: None - Tetanus Immunizations Tetanus Immunization: Unknown - Past Medical History & Family History Past Medical History?: Yes - Past Social History Smoking Status: Light Smoker < 10 Cigarettes Daily - CARDIAC Hx Hypertension: Yes - PULMONARY Hx Respiratory Disorders: No - NEUROLOGICAL Hx Neurological Disorder: No - HEENT Hx HEENT Problems: No - RENAL Hx Chronic Kidney Disease: No - ENDOCRINE/METABOLIC Hx Endocrine Disorders: No - HEMATOLOGICAL/ONCOLOGICAL Hx Human Immunodeficiency Virus (HIV): No - INTEGUMENTARY Hx Dermatological Problems: No - MUSCULOSKELETAL/RHEUMATOLOGICAL Hx Musculoskeletal Disorders: Yes Hx Back Pain: Yes Hx Falls: No - GASTROINTESTINAL Hx Gastrointestinal Disorders: No Hx Diarrhea: No - GENITOURINARY/GYNECOLOGICAL Hx Genitourinary Disorders: No - PSYCHIATRIC Hx Anxiety: Yes Hx Substance Use: No - SURGICAL HISTORY Hx Surgeries: Yes Other/Comment: 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 - ANESTHESIA Hx Anesthesia: Yes Hx Anesthesia Reactions: No Hx Malignant Hyperthermia: No Meds Allergies/Adverse Reactions: Allergies Allergy/AdvReac Type Severity Reaction Status Date / Time No Known Allergies Allergy Verified 12/01/17 18:41 Physical Exam - Constitutional Appears: Well, No Acute Distress - Head Exam Head Exam: ATRAUMATIC, NORMAL INSPECTION, NORMOCEPHALIC - Eye Exam Eye Exam: EOMI, Normal appearance Pupil Exam: NORMAL ACCOMODATION - ENT Exam ENT Exam: Mucous Membranes Moist, Normal Exam, Normal Oropharynx Additional comments: No post nasal drip - Neck Exam Neck exam: Positive for: Full Rom - Respiratory Exam Respiratory Exam: Clear to Auscultation Bilateral, NORMAL BREATHING PATTERN. absent: Rales, Rhonchi, Wheezes - Cardiovascular Exam Cardiovascular Exam: REGULAR RHYTHM, +S1, +S2 - GI/Abdominal Exam GI & Abdominal Exam: Normal Bowel Sounds, Soft. absent: Guarding, Rebound, Rigid, Tenderness - Extremities Exam Extremities exam: Positive for: normal inspection, pedal pulses present. Negative for: calf tenderness - Back Exam Back exam: NORMAL INSPECTION - Neurological Exam Neurological exam: Alert, CN II-XII Intact, Oriented x3 - Psychiatric Exam Psychiatric exam: Normal Affect, Normal Mood - Skin Skin Exam: Dry, Normal Color, Warm Results - Vital Signs Recent Vital Signs: Last Vital Signs Temp 98.6 F 12/01/17 18:37 Pulse 85 12/01/17 20:31 Resp 17 12/01/17 20:31 BP 148/59 L 12/01/17 20:31 Pulse Ox 100 12/01/17 20:31 - Labs Result Diagrams: 12/01/17 19:38 12/01/17 19:38 Labs: Laboratory Results - last 24 hr 12/01/17 12/01/17 12/01/17 19:38 19:38 19:38 WBC 9.4 RBC 4.57 Hgb 14.0 Hct 39.7 MCV 86.8 MCH 30.6 MCHC 35.2 RDW 13.2 Plt Count 215 MPV 10.5 Neut % (Auto) 66.2 Lymph % (Auto) 26.1 [place] % (Auto) 6.7 Eos % (Auto) 0.7 Baso % (Auto) 0.3 Neut # (Auto) 6.2 Lymph # (Auto) 2.5 [place] # (Auto) 0.6 Eos # (Auto) 0.1 Baso # (Auto) 0.0 PT 11.7 INR 1.1 APTT 38 H Sodium 140 Potassium 4.1 Chloride 101 Carbon Dioxide 28 Anion Gap 15 BUN 19 H Creatinine 0.9 Est GFR ( Amer) > 60 Est GFR (Non-Af Amer) > 60 Random Glucose 119 H Calcium 9.3 Total Bilirubin 0.2 AST 13 L D ALT 20 Alkaline Phosphatase 95 Troponin I < 0.0120 NT-Pro-B Natriuret Pep 84.6 Total Protein 6.6 Albumin 4.1 Globulin 2.6 Albumin/Globulin Ratio 1.6 Assessment & Plan - Assessment and Plan (Free Text) Assessment: A/P: Patient is a 56 year old female with past medical history of hypertension and coronary artery spasm who presents with chest pain that started the night prior to arrival. Patient also admits to having 1 week history of dry cough. Chest pain, R/O ACS -Stable, afebrile -Admit to telemetry -Initial troponin was negative, trends Q6h x 2 -EKG showed NSR at 84 bpm, no ST-T wave changes -Patient had a cardiac catherization 04/2016 that showed diffuse left coronary artery spasm, insignificant proximal right coronary artery plaque -F/U lipid panel, TSH/Free T4, Hemoglobin A1C -Continue ASA 81mg PO daily Hypertension -Resume Norvasc 10mg PO daily -Will Hold Ramapril in light of cough Non-productive cough -Afebrile, no leukocytosis -Patient states that dry cough is worse at night -She has a history of smoking, still does -We will add Robitussin DM 10ml Q4H prn cough -CXR shows no infiltrates, f/u official read -Patient was started on Ramipril 10mg PO daily in July 2017 -If no improvement, may consider getting CT chest for further evaluation Tobacco Dependence -Cessation encouraged GI/DVT ppx: -Protonix 40mg IVP daily -Lovenox 40mg SC daily Plan discussed with Dr Rajan Arnold DO PGY-2 <Blair Tolentino P - Last Filed: 12/02/17 07:09> Results - Vital Signs Recent Vital Signs: Last Vital Signs Temp 97.9 F 12/02/17 02:13 Pulse 80 12/02/17 02:13 Resp 20 12/02/17 02:13 BP 146/90 12/02/17 02:13 Pulse Ox 97 12/02/17 02:13 - Labs Result Diagrams: 12/01/17 19:38 12/01/17 19:38 Labs: Laboratory Results - last 24 hr 12/01/17 12/01/17 12/01/17 19:38 19:38 19:38 WBC 9.4 RBC 4.57 Hgb 14.0 Hct 39.7 MCV 86.8 MCH 30.6 MCHC 35.2 RDW 13.2 Plt Count 215 MPV 10.5 Neut % (Auto) 66.2 Lymph % (Auto) 26.1 [place] % (Auto) 6.7 Eos % (Auto) 0.7 Baso % (Auto) 0.3 Neut # (Auto) 6.2 Lymph # (Auto) 2.5 [place] # (Auto) 0.6 Eos # (Auto) 0.1 Baso # (Auto) 0.0 PT 11.7 INR 1.1 APTT 38 H Sodium 140 Potassium 4.1 Chloride 101 Carbon Dioxide 28 Anion Gap 15 BUN 19 H Creatinine 0.9 Est GFR ( Amer) > 60 Est GFR (Non-Af Amer) > 60 Random Glucose 119 H Calcium 9.3 Total Bilirubin 0.2 AST 13 L D ALT 20 Alkaline Phosphatase 95 Total Creatine Kinase CK-MB (Mass) Troponin I < 0.0120 NT-Pro-B Natriuret Pep 84.6 Total Protein 6.6 Albumin 4.1 Globulin 2.6 Albumin/Globulin Ratio 1.6 12/02/17 01:32 WBC RBC Hgb Hct MCV MCH MCHC RDW Plt Count MPV Neut % (Auto) Lymph % (Auto) [place] % (Auto) Eos % (Auto) Baso % (Auto) Neut # (Auto) Lymph # (Auto) [place] # (Auto) Eos # (Auto) Baso # (Auto) PT INR APTT Sodium Potassium Chloride Carbon Dioxide Anion Gap BUN Creatinine Est GFR ( Amer) Est GFR (Non-Af Amer) Random Glucose Calcium Total Bilirubin AST ALT Alkaline Phosphatase Total Creatine Kinase 39 CK-MB (Mass) 0.27 Troponin I < 0.0120 NT-Pro-B Natriuret Pep Total Protein Albumin Globulin Albumin/Globulin Ratio Attending/Attestation - Attestation I have personally seen and examined this patient.: Yes I have fully participated in the care of the patient.: Yes I have reviewed all pertinent clinical information: Yes Notes (Text): 12/02/17 06:55 Atypical chest pain, no ekg change, cath this yr negative for CAD but spasm during the cath, no h/o angina or stress precipitating recurrent cp Cough dry x1 wk Anxiety and stress Tobacco abuse Plan Serial troponin ACEI on put on for cough, my start ARB, if bp remains high, out of hospital if cough persist for 1-[address], laryngoscopy due to smoking history Counselled about smoking cessation See orders for detail.
[2017-12-01] MEDS ORDERED: guaiFENesin DM 200 mg-20 mg/10 ml UD PO PRN (23:39)
[2017-12-02 00:20] VITALS: RESP 20
[2017-12-02 01:58] LABS: CK-MB 0.27 ng/mL (0.0-3.38)
--- NOTE | 2017-12-02 07:24 | RAD ---
Chest x-ray single frontal view HISTORY: Chest pain. COMPARISON: 04/18/2016 FINDINGS: Biapical pleural thickening with upper lobe granulomatous changes. Mild venous congestion. Right hilar prominence. Bibasilar breast and nipple shadows. Heart size within normal limits. Degenerative changes in the spine and shoulders. IMPRESSION: Biapical pleural thickening with upper lobe granulomatous changes. Mild venous congestion. Right hilar prominence. Bibasilar breast and nipple shadows.
[2017-12-02 07:53] LABS: BASO % 0.3 % (0.0-2.0); EOS # 0.1 K/uL (0.0-0.7); EOS % 1.1 % (0.0-4.0); HEMOGLOBIN 13.5 g/dL (11.0-16.0); LYMPH # 2.4 K/uL (1.0-4.3); LYMPH % 31.3 % (20.0-40.0); MEAN CELL VOLUME 87.4 fL (81.0-99.0); MEAN CORPUSCULAR HEMOGLOBIN 30.3 pg (27.0-31.0); MEAN CORPUSCULAR HGB CONC 34.7 g/dL (33.0-37.0); MEAN PLATELET VOLUME 10.1 fL (7.2-11.7); MONO # 0.6 K/uL (0.0-0.8); MONO % 8.1 % (0.0-10.0); NEUT # 4.5 K/uL (1.8-7.0); NEUT % 59.2 % (50.0-75.0); NRBC % 0.1 % (0.0-2.0); RBC 4.46 Mil/uL (3.80-5.20); RED CELL DISTRIBUTION WIDTH 13.4 % (11.5-14.5); WHITE BLOOD COUNT 7.6 K/uL (4.8-10.8)
[2017-12-02 08:29] LABS: CK-MB 0.32 ng/mL (0.0-3.38)
[2017-12-02 08:38] LABS: ALB/GLOB RATIO 1.4 (1.0-2.1); ALBUMIN 3.8 g/dL (3.5-5.0); ALT/SGPT 23 U/L (9-52); AST/SGOT 13 U/L (14-36); BLOOD UREA NITROGEN 16 mg/dL (7-17); GFR NON-AFRICAN AMERICAN > 60; HDL CHOLESTEROL 35 mg/dL (30-70)
[2017-12-02 08:49] LABS: LDL CHOLESTEROL 55 mg/dL (0-129)
[2017-12-02] MEDS ORDERED: Enoxaparin 40 mg Syringe SC SCH (10:00)
[2017-12-02] MEDS ORDERED: Potassium Chloride 20 mEq/15 ml LIQ UD PO ONE (10:15)
[2017-12-02] MEDS ORDERED: MethylPREDNISolone 40 mg Vial IVP ONE (12:15)
[2017-12-02] MEDS ORDERED: Budesonide 0.5 mg/2 ml Inhal Susp UD INH SCH (12:15)
[2017-12-02] MEDS ORDERED: Metoprolol 1 mg/ml Inj IVP ONE (12:46)
--- NOTE | 2017-12-02 13:14 | CARD ---
APPROVED REPORT Date of service: 12/01/2017 EKG Measurement Heart [id number] ID [id number] <Conclusion> Normal sinus rhythm Normal ECG
--- NOTE | 2017-12-02 14:00 | CT ---
Date of service: 12/02/2017 PROCEDURE: CT Chest without contrast HISTORY: shortness of breath COMPARISON: Not available TECHNIQUE: Contiguous axial images were obtained through the chest without intravenous contrast enhancement. Sagittal and coronal reconstructions were performed. Radiation dose (DLP): 174.29 mGy-cm. This CT exam was performed using one or more of the following dose reduction techniques: Automated exposure control, adjustment of the mA and/or kV according to patient size, and/or use of iterative reconstruction technique. FINDINGS: LUNGS: Minimal centrilobular pulmonary emphysema. No infiltrate. No pulmonary mass. MEDIASTINUM: Unremarkable thoracic aorta. No aneurysm. Normal sized heart. Main pulmonary artery unremarkable. No vascular congestion. No lymphadenopathy. PLEURA: No pleural fluid. No pneumothorax. BONES: No fracture. Small sclerotic lesion in the T12 vertebral body, likely bone island. UPPER ABDOMEN: Severely atrophic left kidney. Unremarkable right kidney as included in this examination. OTHER FINDINGS: None. IMPRESSION: No infiltrate. No effusion. Minimal pulmonary emphysema. Additional minor findings as above.
[2017-12-02] MEDS ORDERED: Influenza Vaccine 60 MCG/0.5 ML SYR (3 yr & up) IM ONE (15:19)
[2017-12-02 15:54] VITALS: BP 146/89; PULSE 78; TEMP 98.2; O2SAT 98
--- NOTE | 2017-12-02 18:38 | CP.PCM.DIS ---
<Manolo Rodriguez - Last Filed: 12/02/17 18:30> Provider - Provider Date of Admission: 12/01/17 20:14 Attending physician: Blair Tolentino MD Primary care physician: Dr. Robertson Time Spent in preparation of Discharge (in minutes): 45 Diagnosis - Discharge Diagnosis (1) Dyspnea on exertion Status: Acute (2) Coronary artery vasospasm Status: Acute (3) Emphysema of lung Status: Acute (4) Chest pain Status: Acute (5) Smoker Status: Acute Hospital Course - Lab Results Lab Results: Most Recent Lab Values WBC 7.6 K/uL (4.8-10.8) 12/02/17 07:44 RBC 4.46 Mil/uL (3.80-5.20) 12/02/17 07:44 Hgb 13.5 g/dL (11.0-16.0) 12/02/17 07:44 Hct 39.0 % (34.0-47.0) 12/02/17 07:44 MCV 87.4 fL (81.0-99.0) 12/02/17 07:44 MCH 30.3 pg (27.0-31.0) 12/02/17 07:44 MCHC 34.7 g/dL (33.0-37.0) 12/02/17 07:44 RDW 13.4 % (11.5-14.5) 12/02/17 07:44 Plt Count 199 K/uL (130-400) 12/02/17 07:44 MPV 10.1 fL (7.2-11.7) 12/02/17 07:44 Neut % (Auto) 59.2 % (50.0-75.0) 12/02/17 07:44 Lymph % (Auto) 31.3 % (20.0-40.0) 12/02/17 07:44 [place] % (Auto) 8.1 % (0.0-10.0) 12/02/17 07:44 Eos % (Auto) 1.1 % (0.0-4.0) 12/02/17 07:44 Baso % (Auto) 0.3 % (0.0-2.0) 12/02/17 07:44 Neut # (Auto) 4.5 K/uL (1.8-7.0) 12/02/17 07:44 Lymph # (Auto) 2.4 K/uL (1.0-4.3) 12/02/17 07:44 [place] # (Auto) 0.6 K/uL (0.0-0.8) 12/02/17 07:44 Eos # (Auto) 0.1 K/uL (0.0-0.7) 12/02/17 07:44 Baso # (Auto) 0.0 K/uL (0.0-0.2) 12/02/17 07:44 PT 11.7 SECONDS (9.7-12.2) 12/01/17 19:38 INR 1.1 12/01/17 19:38 APTT 38 SECONDS (21-34) H 12/01/17 19:38 Sodium 142 mmol/L (132-148) 12/02/17 07:44 Potassium 3.5 mmol/L (3.6-5.2) L 12/02/17 07:44 Chloride 105 mmol/L (98-107) 12/02/17 07:44 Carbon Dioxide 28 mmol/L (22-30) 12/02/17 07:44 Anion Gap 12 (10-20) 12/02/17 07:44 BUN 16 mg/dL (7-17) 12/02/17 07:44 Creatinine 0.7 mg/dL (0.7-1.2) 12/02/17 07:44 Est GFR ( Amer) > 60 12/02/17 07:44 Est GFR (Non-Af Amer) > 60 12/02/17 07:44 Random Glucose 88 mg/dL (65-105) 12/02/17 07:44 Hemoglobin A1c 6.0 % (4.2-6.5) 12/02/17 07:44 Calcium 9.0 mg/dl (8.6-10.4) 12/02/17 07:44 Phosphorus 4.8 mg/dL (2.5-4.5) H 12/02/17 07:44 Magnesium 1.8 mg/dL (1.6-2.3) 12/02/17 07:44 Total Bilirubin 0.2 mg/dL (0.2-1.3) 12/02/17 07:44 AST 13 U/L (14-36) L 12/02/17 07:44 ALT 23 U/L (9-52) 12/02/17 07:44 Alkaline Phosphatase 88 U/L (38-126) 12/02/17 07:44 Total Creatine Kinase 42 U/L (30-135) 12/02/17 07:44 CK-MB (Mass) 0.32 ng/mL (0.0-3.38) 12/02/17 07:44 Troponin I < 0.0120 ng/mL (0.00-0.120) 12/02/17 07:44 NT-Pro-B Natriuret Pep 84.6 pg/mL (0-900) 12/01/17 19:38 Total Protein 6.4 g/dL (6.3-8.3) 12/02/17 07:44 Albumin 3.8 g/dL (3.5-5.0) 12/02/17 07:44 Globulin 2.6 gm/dL (2.2-3.9) 12/02/17 07:44 Albumin/Globulin Ratio 1.4 (1.0-2.1) 12/02/17 07:44 Triglycerides 73 mg/dL (0-149) 12/02/17 07:44 Cholesterol 107 mg/dL (0-199) 12/02/17 07:44 LDL Cholesterol Direct 55 mg/dL (0-129) 12/02/17 07:44 HDL Cholesterol 35 mg/dL (30-70) 12/02/17 07:44 Free T4 1.27 ng/dL (0.78-2.19) 12/02/17 07:44 TSH 3rd Generation 0.50 mIU/L (0.46-4.68) 12/02/17 07:44 - Hospital Course Hospital Course: Medicine Discharge Summary for Hospitalist Service Manolo Rodriguez DO PGY-1, Computer [employer] This is a 56 y o female with PMHx HTN and coronary artery vasospasm who presented to the ED on 12/01/17 for chest pain. Pt stated that the night prior to arrival she was sleeping and at about 3:00 am started experiencing L sided chest pain and L arm pain, assoc. with lightheadedness, fatigue and palpitations. Palpitations lasted for about 10 mins. Pt stated that she was able to go back to sleep. In the am when she woke up she felt better, but still was fatigued. Reported chest pain still present but not as severe. Admitted to feeling palpitations again while walking to store, noted having to stop while walking 2/2 chest discomfort. Pt admitted to hx angina in past but that it felt different this time. Denied headaches, n/v, dizziness, palpitations, shortness of breath, abd pain, urinary sxs, or changes in bowel habits. Reported having dry persistent cough that was worse at night for the past week. Denied nasal congestion, rhinorrhea, sick contacts, or recent travel. Pt was admitted for chest pain, deemed to be secondary to coronary artery vasospasm hx and hx current tobacco use. ZACHERY x3 neg for elevation. Lab work-up was otherwise wnl. EKG demonstrated NSR, no acute St-t waves changes. CXR demonstrated biapical pleural thickening with upper lobe granulomatous changes, mild venous congestion, and R hilar prominence. CT chest demonstrated no infiltrate or effusion, but minimal pulmonary emphysema. It was deemed that pt's dyspnea on exertion was likely secondary to hx tobacco use and possible COPD-like symptoms. Pt was discharged to home in stable condition on 12/02/17. Instructed to f/u with her PCP Dr. Robertson within 1 week of discharge for referral for pulmonary function tests. Started patient on prednisone 20 mg daily for total course 7 d, Pulmicort bid, and Ventolin inhaler prn for shortness of breath. Pt was educated about smoking cessation and importance of quitting to slow down the progression of her symptoms. Patient also instructed to resume home medications on discharge and discuss with PCP switching HTN medication Ramipril to another medication less likely to cause dry cough. Pt reported starting this medication 3 mos prior Pt understanding of course of treatment, all questions and concerns addressed with pt. Discharge Exam - Head Exam Head Exam: ATRAUMATIC, NORMAL INSPECTION, NORMOCEPHALIC - Eye Exam Eye Exam: EOMI, Normal appearance, PERRL - ENT Exam ENT Exam: Mucous Membranes Moist - Respiratory Exam Respiratory Exam: Clear to PA & Lateral, NORMAL BREATHING PATTERN, UNREMARKABLE. absent: Rales, Rhonchi, Wheezes - Cardiovascular Exam Cardiovascular Exam: REGULAR RHYTHM, +S1, +S2. absent: Gallop, Rubs, Systolic Murmur - GI/Abdominal Exam GI & Abdominal Exam: Soft, Unremarkable. absent: Distended, Firm, Guarding, Hernia, Organomegaly, Rebound - Extremities Exam Extremities exam: full ROM, normal capillary refill, pedal pulses present - Neurological Exam Neurological exam: Alert, CN II-XII Intact, Normal Gait, Oriented x3, Reflexes Normal - Psychiatric Exam Psychiatric exam: Normal Affect, Normal Mood - Skin Skin Exam: Dry, Intact, Normal Color, Warm Discharge Plan - Discharge Medications Prescriptions: Albuterol Sulfate [Ventolin Hfa] 0.09 mg IH Q4H PRN #1 ml PRN Reason: Shortness Of Breath RX: Budesonide [Pulmicort Respules] 0.5 mg INH RQ12 #1 neb RX: predniSONE [predniSONE Tab] 20 mg PO DAILY #7 tab - Follow Up Plan Condition: GOOD Disposition: HOME/ ROUTINE Instructions: Heart Healthy Diet, Chest Pain (DC), Albuterol, Prednisone, Budesonide (Oral Inhalation) Additional Instructions: Patient medically stable for discharge. Please follow-up with your primary care physician (Dr. Robertson) within 1 week of hospital discharge. Please resume home medications as prescribed. Please note new medications prescribed in addition to your home medications: Pulmicort, Ventolin inhaler, Prednisone. Please abstain from cigarette smoking. Should symptoms recur or worsen, please call your primary care physician or report to your nearest emergency department. Referrals: Sunday Robertson MD [Staff Provider] - <Tyron Lovett - Last Filed: 12/03/17 07:42> Provider - Provider Date of Admission: 12/01/17 20:14 Attending physician: Blair Tolentino MD Hospital Course - Lab Results Lab Results: Most Recent Lab Values WBC 7.6 K/uL (4.8-10.8) 12/02/17 07:44 RBC 4.46 Mil/uL (3.80-5.20) 12/02/17 07:44 Hgb 13.5 g/dL (11.0-16.0) 12/02/17 07:44 Hct 39.0 % (34.0-47.0) 12/02/17 07:44 MCV 87.4 fL (81.0-99.0) 12/02/17 07:44 MCH 30.3 pg (27.0-31.0) 12/02/17 07:44 MCHC 34.7 g/dL (33.0-37.0) 12/02/17 07:44 RDW 13.4 % (11.5-14.5) 12/02/17 07:44 Plt Count 199 K/uL (130-400) 12/02/17 07:44 MPV 10.1 fL (7.2-11.7) 12/02/17 07:44 Neut % (Auto) 59.2 % (50.0-75.0) 12/02/17 07:44 Lymph % (Auto) 31.3 % (20.0-40.0) 12/02/17 07:44 [place] % (Auto) 8.1 % (0.0-10.0) 12/02/17 07:44 Eos % (Auto) 1.1 % (0.0-4.0) 12/02/17 07:44 Baso % (Auto) 0.3 % (0.0-2.0) 12/02/17 07:44 Neut # (Auto) 4.5 K/uL (1.8-7.0) 12/02/17 07:44 Lymph # (Auto) 2.4 K/uL (1.0-4.3) 12/02/17 07:44 [place] # (Auto) 0.6 K/uL (0.0-0.8) 12/02/17 07:44 Eos # (Auto) 0.1 K/uL (0.0-0.7) 12/02/17 07:44 Baso # (Auto) 0.0 K/uL (0.0-0.2) 12/02/17 07:44 PT 11.7 SECONDS (9.7-12.2) 12/01/17 19:38 INR 1.1 12/01/17 19:38 APTT 38 SECONDS (21-34) H 12/01/17 19:38 Sodium 142 mmol/L (132-148) 12/02/17 07:44 Potassium 3.5 mmol/L (3.6-5.2) L 12/02/17 07:44 Chloride 105 mmol/L (98-107) 12/02/17 07:44 Carbon Dioxide 28 mmol/L (22-30) 12/02/17 07:44 Anion Gap 12 (10-20) 12/02/17 07:44 BUN 16 mg/dL (7-17) 12/02/17 07:44 Creatinine 0.7 mg/dL (0.7-1.2) 12/02/17 07:44 Est GFR ( Amer) > 60 12/02/17 07:44 Est GFR (Non-Af Amer) > 60 12/02/17 07:44 Random Glucose 88 mg/dL (65-105) 12/02/17 07:44 Hemoglobin A1c 6.0 % (4.2-6.5) 12/02/17 07:44 Calcium 9.0 mg/dl (8.6-10.4) 12/02/17 07:44 Phosphorus 4.8 mg/dL (2.5-4.5) H 12/02/17 07:44 Magnesium 1.8 mg/dL (1.6-2.3) 12/02/17 07:44 Total Bilirubin 0.2 mg/dL (0.2-1.3) 12/02/17 07:44 AST 13 U/L (14-36) L 12/02/17 07:44 ALT 23 U/L (9-52) 12/02/17 07:44 Alkaline Phosphatase 88 U/L (38-126) 12/02/17 07:44 Total Creatine Kinase 42 U/L (30-135) 12/02/17 07:44 CK-MB (Mass) 0.32 ng/mL (0.0-3.38) 12/02/17 07:44 Troponin I < 0.0120 ng/mL (0.00-0.120) 12/02/17 07:44 NT-Pro-B Natriuret Pep 84.6 pg/mL (0-900) 12/01/17 19:38 Total Protein 6.4 g/dL (6.3-8.3) 12/02/17 07:44 Albumin 3.8 g/dL (3.5-5.0) 12/02/17 07:44 Globulin 2.6 gm/dL (2.2-3.9) 12/02/17 07:44 Albumin/Globulin Ratio 1.4 (1.0-2.1) 12/02/17 07:44 Triglycerides 73 mg/dL (0-149) 12/02/17 07:44 Cholesterol 107 mg/dL (0-199) 12/02/17 07:44 LDL Cholesterol Direct 55 mg/dL (0-129) 12/02/17 07:44 HDL Cholesterol 35 mg/dL (30-70) 12/02/17 07:44 Free T4 1.27 ng/dL (0.78-2.19) 12/02/17 07:44 TSH 3rd Generation 0.50 mIU/L (0.46-4.68) 12/02/17 07:44 Attending/Attestation - Attestation I have personally seen and examined this patient.: Yes I have fully participated in the care of the patient.: Yes I have reviewed all pertinent clinical information, including history, physical exam and plan: Yes Notes (Text): 12/03/17 07:39 Medical attending: Patient was seen and examined by me. Agree with the above note by the resident Patient was not in any acute distress when I came and saw her. The patient was not in any acute distress. Cardiac enzymes negative, 12 lead EKG looked stable. She had a cardiac cath last year, EF was 55 % She is a smoker and has been smoking for a long time. Will discharge patient with pulmicort as well as a tapering prednisone course. We discussed with the patient our concerns for smoking as it does place her at risk for future events I hope she will stop smoking Tyron Lovett
[2017-12-04] MEDS ORDERED: Influenza Vaccine 60 MCG/0.5 ML SYR (3 yr & up) IM ONE (14:00)
== END 2017-12-02 16:41 | disposition home or self-care (01) ==
LOC: C.ER 18:29 → C.9E 20:14 → C.5S 22:58
PROVIDERS: ADMIT Internal Medicine; ATTEND Internal Medicine
DX: I20.1 Angina pectoris with documented spasm (principal); I10 Essential (primary) hypertension; J43.9 Emphysema, unspecified; F17.210 Nicotine dependence, cigarettes, uncomplicated; Z79.82 Long term (current) use of aspirin
CPT/HCPCS: 36415; 71045; 71250; 80053; 80061; 83036; 83735; 83880; 84100; 84439; 84443; 84484; 85025; 85610; 85730; 93005; 94770; C9113; G0378; J1650; J2920

== ENCOUNTER 2018-06-23 10:44 | Outpatient (CLI) | payer OTHER | END 2018-06-23 10:45 | disposition home or self-care (01) | LOC: C.CTH 10:44 | DX: J32.4 Chronic pansinusitis (principal) ==